=== PATIENT | male | born 1935 | race Caucasian/White ===

== ENCOUNTER 2017-10-06 10:55 | Emergency (ER) | payer MEDICARE, BC, SELFPAY ==
[2017-10-06 10:56] VITALS: BP 119/72; PULSE 67; RESP 16; TEMP 36.9; O2SAT 98; BMI 21.1
[2017-10-06 10:59] VITALS: BP 119/67; PULSE 65; RESP 16; O2SAT 97
--- NOTE | 2017-10-06 11:40 | CT_ITS ---
STUDY: CT BRAIN WITHOUT CONTRAST REASON FOR EXAM: Male, 82 years old. Expressive aphasia, headache RADIATION DOSAGE (If Supplied By Facility): CTDIvol = ( 60.81 ) mGy, DLP = ( 1135.50 ) mGycm TECHNIQUE: Transaxial CT imaging of the brain was performed without administration of intravenous contrast material. Sagittal and coronal reconstructed images are provided and reviewed. Individualized dose optimization techniques were used for this CT. COMPARISON: CT 08/04/2017, MRI 08/05/2017 FINDINGS: Vascular calcifications are seen. Normal calvarium. There is mild cerebral atrophy with widening of the extra-axial spaces and ventricular dilatation. There are areas of decreased attenuation within the white matter tracts of the supratentorial brain, consistent with microvascular disease changes. There are small punctate calcifications of the basal ganglia which are seen in the aging brain as a normal variant. Normal brainstem. There is mild cerebellar atrophy. There is no intracranial hemorrhage. There are no findings of an acute ischemic infarction. There is mucoperiosteal inflammatory disease of the paranasal sinuses consistent with mild chronic sinusitis. CT/Brain/Head without Contrast IMPRESSION: Chronic involutional changes. No acute intracranial abnormality. No significant change from 08/04/2017. Electronically Signed: Tanner Carter DO at 12:12 EDT Tel , Service support ,
[2017-10-06 11:41] LABS: Absolute Lymphocyte Count 0.96 X10^3/ul (0.83-4.51); Absolute Neutrophil Count 3.6 X10^3/uL (2.0-7.7); Basophil# 0.05 X10^3/uL; Basophil% 0.9 % (0-1); Eosinophils% 3.7 % (0-5); Hematocrit 38.9 % (40-54); Hemoglobin 12.9 g/dl (13.0-16.5); Lymphocyte # 0.96 X10^3/ul (4.0); Lymphocyte % 17.8 % (19-41); Mean Corp Hgb Conc 33.2 g/gl (32-36); Mean Corpuscular Hgb 31.6 pg (27.0-32.0); Mean Corpuscular Volume 95.3 fL (80-94); Mean Platelet Vol. 9.3 fl (6.2-12.0); Monocyte# 0.61 X10^3/uL; Monocyte% 11.3 % (0-10); Neutrophil # 3.57 X10^3/uL (2.7-7.7); Neutrophil % 66.3 % (47-70); POSITIVE COUNT NO; POSITIVE DIFFERENTIAL NO; POSITIVE MORPHOLOGY NO; Platelet Count 191 K/mm3 (150-450); RBC Distribution Width CV 12.4 % (11.6-14.6); RBC Distribution Width SD 42.5 fl (35.1-43.9); Red Blood Count 4.08 M/mm3 (4.6-6.2); White Blood Count 5.4 K/mm3 (4.4-11.0)
[2017-10-06 11:51] LABS: Anion Gap 5 (5-15); BUN 19 mg/dL (7-18); BUN/Creat Ratio 19.2 RATIO (10-20); Calcium,Total 8.3 mg/dL (8.5-10.1); Chloride 108 mmol/L (98-107); Creatinine, Serum 0.99 mg/dL (0.70-1.30); EST Glomerular Filtration Rate 77 mL/min (>60); Est Glom Filt Rate - Afr Amer 94 mL/min (>60); Estimated Creatinine Clearance 56.13 ml/min; Glucose 73 mg/dL (74-106); Potassium 4.7 mmol/L (3.5-5.1); Sodium Level 142 mmol/L (136-145)
[2017-10-06 11:57] VITALS: BP 113/73; PULSE 63; RESP 16; O2SAT 96
[2017-10-06 12:02] VITALS: BP 130/74; PULSE 67; RESP 16; O2SAT 97
[2017-10-06 12:55] LABS: Bacteria 0 SEEN /hpf (None Seen); Mucous, Urine 0 SEEN /hpf (<or=2+); Red Blood Cells-Urine 0 SEEN /hpf (0-5); Squamous Epithelial Cells - UA 0 SEEN /hpf (0-5); White Blood Cells 0 SEEN /hpf (0-5)
[2017-10-06 13:02] LABS: Color, Urine Yellow (Yellow); Glucose, Dipstick Normal (Normal); Ketone-Dipstick Negative (Negative); Leukocyte Esterase-Dipstick Negative /ul (Negative); Nitrite-Dipstick Negative (Negative); Occult Blood-Urine 10 /ul (Negative); Protein-Dipstick Negative (Negative); Urine Bilirubin Dipstick Negative (Negative); Urine Clarity Clear (Clear); Urine Urobilinogen Normal (Normal)
--- NOTE | 2017-10-06 13:09 | ED.VISSUMM ---
- ER Visit Summary Date of Service: 10/06/17 Chief Complaint: Expressive aphasia History of Present Illness: The patient is a [address] Villarreal and Dr. David Mondragon III. reports that approximately 9:00 this morning was confused while making the bed and came to speak with her and had an expressive aphasia when this occurred the last approximately 15 minutes. Patient denied any other neurologic symptoms at that time. No numbness, weakness, dizziness, blurred or double vision. Reports he has a headache is 510 severity is similar to prior headaches. Review of systems is negative. Physical Examination: Vitals: Stable. Afebrile. General: Well-nourished and well-developed. Head: Normocephalic atraumatic. Neck: Supple, no lymphadenopathy. No JVD. Nontender. Cardiovascular: Regular rate and rhythm. No murmurs. Respiratory: No respiratory distress. Clear to auscultation bilaterally. Abdominal: Soft, nontender, nondistended, normal bowel sounds. No guarding, rebound, or peritoneal signs. Back: Nontender. Extremities: Nontender, no edema. Skin: Normal color, no rash. Neurologic: Alert and oriented ?3. Cranial nerves II through XII are intact. Normal strength and sensation. Psych: Normal affect. Test Results: CT brain shows chronic changes and is unchanged from July. CBC is more for an H&H 12 point and 30.9, lymphocytes of 18, monocytes 11. Chem-7 more for chloride 108, BUN 19, glucose 73, calcium 8.3. Urine is normal. Emergency Department Course and Treatment: Patient's NIH scale is 0 here. He clearly is not a TPA candidate. He refused pain medications. He ate while here without any difficulty. Treatment Plan: Patient was admitted in July for similar episode and had an extensive evaluation. This was discussed with his neurologist, Dr. Villarreal, and is felt at this time that there really is no reason to keep him in the hospital for further evaluation. He is instructed to follow-up with her in November as previously scheduled. Call their office if he is having any other further problems or concerns and wants to be seen sooner. Disposition: To home in improved and stable condition. Impression: 1. Expressive aphasia, resolved. This note was generated with Virtual [employer] software. It may contain incorrect words, spelling, and punctuation that were not noted in review of the chart prior to signing ED Disposition - Plan for ED Patient: Chief Complaint: Neuro S/Sx Instructions: ED Transient Ischemic Attack Referrals: David Mondragon III, MD [Primary Care Provider] - Additional Instructions: Follow-up with Dr. Villarreal as previously scheduled. She states she would be happy to see you sooner if you are having any problems or concerns.
[2017-10-06 13:26] VITALS: BP 153/86; PULSE 55; RESP 16; O2SAT 97
[2017-10-06 13:32] VITALS: BP 150/97; PULSE 57; RESP 16; O2SAT 97
== END 2017-10-06 13:49 | disposition home or self-care (01) ==
PROVIDERS: Emergency Provider Emergency Medicine; Family Provider Family Medicine; PCP Family Medicine
DX: R47.01 Aphasia (principal); R51 Headache; R41.0 Disorientation, unspecified; Z86.73 Personal history of transient ischemic attack (TIA), and cerebral infarction without residual deficits; I25.10 Atherosclerotic heart disease of native coronary artery without angina pectoris; K21.9 Gastro-esophageal reflux disease without esophagitis; E11.9 Type 2 diabetes mellitus without complications; I10 Essential (primary) hypertension; E78.00 Pure hypercholesterolemia, unspecified; I48.91 Unspecified atrial fibrillation; G20 Parkinson's disease; Z87.19 Personal history of other diseases of the digestive system; Z85.46 Personal history of malignant neoplasm of prostate; Z79.82 Long term (current) use of aspirin; Z79.01 Long term (current) use of anticoagulants; Z79.899 Other long term (current) drug therapy
CPT/HCPCS: 70450; 80048; 81001; 85025; 99285; A4216

== ENCOUNTER 2017-10-24 01:42 | Emergency (ER) | payer MEDICARE, BC, SELFPAY ==
[2017-10-24 01:44] VITALS: BP 147/78; PULSE 74; RESP 19; TEMP 36.7; O2SAT 94; BMI 23.1
--- NOTE | 2017-10-24 02:27 | CT_ITS ---
STUDY: CT ABDOMEN AND PELVIS WITHOUT CONTRAST REASON FOR EXAM: Male, 82 years old. Lower abdominal pain. Nausea and constipation for 4 days. History of prostate cancer, cholecystectomy, and prostatectomy. RADIATION DOSAGE (If Supplied By Facility): CTDIvol = ( 6.07 ) mGy, DLP = ( 309.29 ) mGycm TECHNIQUE: Transaxial images were obtained from the dome of the diaphragm to the symphysis pubis without oral contrast, and without intravenous contrast. Sagittal and coronal images were reconstructed. Superiormost portion of the left hemidiaphragm is not included in this study. Individualized dose optimization techniques were used for this CT. COMPARISON: 02/27/2016. FINDINGS: There is eventration of the left hemidiaphragm with overlying mild atelectasis in the visualized left lung base. The visualized portions of the heart are within normal limits. There are coronary artery calcifications. There is elongation of the right lobe of the liver consistent with a Deep's lobe. The gallbladder is surgically absent. Normal spleen. Normal pancreas. Normal bilateral adrenal glands. Normal right kidney. Normal left kidney. Normal visualized stomach. Normal small intestine. There is fecal distention of the rectum, consistent with constipation and possible fecal impaction. There is less prominent feces throughout the remainder of the colon. There are colonic diverticula without evidence for acute diverticulitis. The appendix is visualized inferior to the cecum on axial images 139-142 and it appears normal.. There is diffuse atherosclerotic calcification of the abdominal aorta with elongation and tortuosity, but without a demonstrated aneurysm. Normal inferior vena cava. Normal retroperitoneum. There is moderate distention of the urinary bladder, which contains 430 mL of urine. The prostate gland is surgically absent. The urinary bladder is displaced anteriorly and superiorly by the fecally distended rectum. Normal abdominal wall. There are diffuse degenerative changes of the visualized lumbar spine. CT/Abdomen/Pelvis without Cont IMPRESSION: Constipation. There is very prominent fecal distention of the rectum which may represent fecal impaction. Distended urinary bladder containing 430 mL of urine. This may be incidental or may represent urinary retention. Urinary retention might result from bladder base compression by the distended rectum. Colonic diverticulosis, without evidence for acute diverticulitis. Atherosclerosis. Chronic elevation of left hemidiaphragm. Previous cholecystectomy and prostatectomy. Electronically Signed: Gianfranco Green MD at 4:40 EDT , Service support ,
--- NOTE | 2017-10-24 02:29 | ED.DCSUM_ITS ---
- ER Visit Summary Date of Service: 10/24/17 Chief Complaint: Constipation History of Present Illness: The patient is a 82 M here with spouse with no bowel movements for 4 days. Tried fleets enema 2 days ago. On Dulcolax along with Metamucil tabs. Small hard stools. Noted to be on tramadol as however has not taken for months. Normal bowel movements are every other day. History of Parkinson's disease. Mild difficulty urinating, history of prostate cancer with prostate removal. No fevers. History of diverticulitis, does complain of some lower abdominal pain. No other complaints. Physical Examination: General: Alert and oriented ?3, no acute distress HEENT: Normocephalic, atraumatic. Moist mucosa membranes Neck: supple, nontender. Cardiovascular: Regular rate and rhythm, no murmurs Respiratory: Normal breath sounds, symmetric, no distress Abdomen: Soft, suprapubic tenderness with mild distention. No guarding or rebound Rectal: Nonthrombosed hemorrhoids laterally, digital rectal examination noted stool impaction. Extremities: Nontender, no edema, pulses intact ?4 Neuro: no focal neurological deficits. Test Results: CT scan noted fecal impaction. There is no diverticulitis. There is distended bladder with concerns secondary to fecal impaction. Emergency Department Course and Treatment: Patient did have suprapubic distention on my initial evaluation. During rectal examination significant impaction was noted. He was disimpacted by myself in the ED, there is mild gross bleeding secondary to this. His abdominal pain was improving after impaction. He had a nonsurgical abdomen. I did obtain a CT scan for evaluation post impaction. Noted concerns for fecal impaction per radiology with because of displacement of the bladder. During the ED patient had multiple urinary events with good relief. Therefore I do not feel he is retaining at this time. I did have nursing perform a soapsuds enema, he did have moderate bowel movement. From review of imaging myself, there is moderate left-sided stool burden. Patient feels much better compared to arrival. Discuss patient and spouse for continued management treatment at home. Stool suppository was placed in the ED. They do have MiraLAX at home, discuss drinking 1 glass with 1 scoop every hour until he has continued bowel movements then decreasing to 2-3 times per day for daily bowel movements. They understand and agree with plan. Discharge home. Discussed return if any worsening symptoms. Treatment Plan: [] Disposition: Discharge Impression: 1. Constipation This note was generated with [employer] dictation software. It may contain incorrect words, spelling, and punctuation that were not noted in review of the chart prior to signing ED Disposition - Plan for ED Patient: Disposition: Home or Assisted Living Chief Complaint: Constipation Diagnosis: Constipation Instructions: ED Constipation, ED Impaction Fecal Treated Referrals: David Mondragon III, MD [Primary Care Provider] - 3-5 Days Additional Instructions: Use your MiraLAX 1 scoop in 8 ounces of water every hour until bowel movement. Then decreased back to 2-3 times daily until having daily bowel movements.
[2017-10-24] MEDS: Bisacodyl 10 MG Suppository RECTAL (06:23)
[2017-10-24 06:28] VITALS: BP 123/78; PULSE 76; RESP 16; O2SAT 96
== END 2017-10-24 06:28 | disposition home or self-care (01) ==
PROVIDERS: Emergency Provider Emergency Medicine; Family Provider Family Medicine; PCP Family Medicine
DX: K59.00 Constipation, unspecified (principal); R10.30 Lower abdominal pain, unspecified; K64.9 Unspecified hemorrhoids; G20 Parkinson's disease; Z86.73 Personal history of transient ischemic attack (TIA), and cerebral infarction without residual deficits; K21.9 Gastro-esophageal reflux disease without esophagitis; I10 Essential (primary) hypertension; E78.00 Pure hypercholesterolemia, unspecified; Z85.46 Personal history of malignant neoplasm of prostate; I48.0 Paroxysmal atrial fibrillation; Z90.79 Acquired absence of other genital organ(s); Z87.19 Personal history of other diseases of the digestive system; Z79.82 Long term (current) use of aspirin; Z79.01 Long term (current) use of anticoagulants; Z79.899 Other long term (current) drug therapy
CPT/HCPCS: 74176; 99284

== ENCOUNTER 2017-11-05 10:50 | Emergency (ER) | payer MEDICARE, BC, SELFPAY ==
[2017-11-05 10:52] VITALS: BP 149/84; PULSE 61; RESP 18; TEMP 36.4; O2SAT 95; BMI 21.8
--- NOTE | 2017-11-05 10:52 | EKG12_ITS ---
Test Reason : CP Blood Pressure : / mmHG Vent. Rate : 060 BPM Atrial Rate : 060 BPM P-R Int : 130 ms QRS Dur : 084 ms QT Int : 438 ms P-R-T Axes : 017 015 044 degrees QTc Int : 438 ms Normal sinus rhythm with sinus arrhythmia Low voltage QRS (limb leads) Confirmed by JAYY SANABRIA, TROY ([id number]), medical editor DANIEL ROBLES ([id number]) on 11/08/2017 2:23:08 PM Referred By: SUNSHINE
--- NOTE | 2017-11-05 11:27 | ED.VISSUMM ---
- ER Visit Summary Date of Service: 11/05/17 Chief Complaint: Intermittent left arm discomfort History of Present Illness: The patient is a 82 M Parkinson's disease, prostate CA for which he had a prostatectomy and CAD with cardiac stents. Patient did have a fall 1 week ago he did not think he was injured. Yesterday he started having some mild left arm discomfort as a sharp pain it is intermittent seems to be worse with certain movements. Currently is pain-free. He said this is nothing like his prior cardiac pain did not have arm pain with that. He denies any chest pain. He denies any shortness of breath. He denies any diaphoresis or nausea. He states that he was trying to carry groceries last night lifting the bags seem to make the arm discomfort worse. He has not had exertional symptoms. Physical Examination: Very well-appearing older male. Vital signs are stable and afebrile. He does not look in any distress. Currently symptom-free pain-free. He is accompanied by his . H EENT exam unremarkable. Neck nontender. Lungs clear to auscultation bilaterally. Heart regular rate and rhythm no murmur. Chest nontender. Abdomen soft nontender. He is moving all 4 extremities. They are neurovascularly intact. Calves are nontender without edema. The left arm he has normal range of motion left shoulder, elbow and wrist. Are nontender nonswollen. There is no edema. No redness. No warmth. His left hand is neurovascularly intact with a strong left radial pulse. Normal touch sensation. 5 out of 5 complaint clerk strength. I moved his arm in many different directions and had him do it also and there is really no reproducible pain. His biceps and triceps appear to be intact. There is no gross bony deformity. Back is nontender. Neurologic exam is normal. He has no focal motor deficits. He does have Parkinson's disease. Test Results: Nurses obtain an EKG on arrival due to the arm pain and cardiac history clinically I do not think this is cardiac. His his EKG reveals a sinus rhythm rate is 60 with no acute signs of VT or ischemia. A left humerus x-ray will be obtained. Left humerus x-ray showed no acute abnormality. Emergency Department Course and Treatment: Since exam and history is more consistent with left arm musculoskeletal pain. Clinically does not have a dislocation. There is no signs of infection. Treatment Plan: Back into reevaluate the patient had been moving his arm all over while he was in the ER to try to find an area of discomfort it does seem like his his proximal forearm which clinically appears to be soft tissue but he did have a fall a week ago he is older and would obtain a left forearm x-ray. Disposition: Discharge Impression: Musculoskeletal left arm pain status post recent fall History of CAD with 3 stents History of Parkinson's disease This note was generated with [employer] dictation software. It may contain incorrect words, spelling, and punctuation that were not noted in review of the chart prior to signing ED Disposition - Plan for ED Patient: Chief Complaint: Upper Extremity Injury Referrals: David Mondragon III, MD [Primary Care Provider] -
--- NOTE | 2017-11-05 11:30 | RAD_ITS ---
STUDY: X-RAY - LEFT HUMERUS REASON FOR EXAM: Male, 82 years old. Left upper arm pain. TECHNIQUE: 2 view(s) of the humerus. COMPARISON: None. FINDINGS: Normal visualized humerus. There is no demonstrated fracture or osseous destructive process. There is no demonstrated soft tissue abnormality. RAD/Humerus min 2 Views IMPRESSION: Normal x-ray examination of the humerus. Electronically Signed: Chilango Rodgers MD at 12:13 EDT Tel [phone], Service support ,
--- NOTE | 2017-11-05 11:31 | ED.DCSUM_ITS ---
- ER Visit Summary Date of Service: 11/05/17 Chief Complaint: Intermittent left arm discomfort History of Present Illness: The patient is a 82 M Parkinson's disease, prostate CA for which he had a prostatectomy and CAD with cardiac stents. Patient did have a fall 1 week ago he did not think he was injured. Yesterday he started having some mild left arm discomfort as a sharp pain it is intermittent seems to be worse with certain movements. Currently is pain-free. He said this is nothing like his prior cardiac pain did not have arm pain with that. He denies any chest pain. He denies any shortness of breath. He denies any diaphoresis or nausea. He states that he was trying to carry groceries last night lifting the bags seem to make the arm discomfort worse. He has not had exertional symptoms. Physical Examination: Very well-appearing older male. Vital signs are stable and afebrile. He does not look in any distress. Currently symptom-free pain- free. He is accompanied by his . H EENT exam unremarkable. Neck nontender. Lungs clear to auscultation bilaterally. Heart regular rate and rhythm no murmur. Chest nontender. Abdomen soft nontender. He is moving all 4 extremities. They are neurovascularly intact. Calves are nontender without edema. The left arm he has normal range of motion left shoulder, elbow and wrist. Are nontender nonswollen. There is no edema. No redness. No warmth. His left hand is neurovascularly intact with a strong left radial pulse. Normal touch sensation. 5 out of 5 cleaner laboratory equipment strength. I moved his arm in many different directions and had him do it also and there is really no reproducible pain. His biceps and triceps appear to be intact. There is no gross bony deformity. Back is nontender. Neurologic exam is normal. He has no focal motor deficits. He does have Parkinson's disease. Test Results: Nurses obtain an EKG on arrival due to the arm pain and cardiac history clinically I do not think this is cardiac. His his EKG reveals a sinus rhythm rate is 60 with no acute signs of ND or ischemia. A left humerus x-ray will be obtained. Left humerus x-ray showed no acute abnormality. Emergency Department Course and Treatment: Since exam and history is more consistent with left arm musculoskeletal pain. Clinically does not have a dislocation. There is no signs of infection. Treatment Plan: Back into reevaluate the patient had been moving his arm all over while he was in the ER to try to find an area of discomfort it does seem like his his proximal forearm which clinically appears to be soft tissue but he did have a fall a week ago he is older and would obtain a left forearm x-ray. Disposition: Discharge Impression: Musculoskeletal left arm pain status post recent fall History of CAD with 3 stents History of Parkinson's disease This note was generated with Silver[employer] dictation software. It may contain incorrect words, spelling, and punctuation that were not noted in review of the chart prior to signing ED Disposition - Plan for ED Patient: Chief Complaint: Upper Extremity Injury Referrals: David Mondragon III, MD [Primary Care Provider] -
--- NOTE | 2017-11-05 12:19 | ED.DEP ---
ED Disposition - Plan for ED Patient: Disposition: Home or Assisted Living Chief Complaint: Upper Extremity Injury Instructions: ED Contusion Upper Ext Referrals: David Mondragon III, MD [Primary Care Provider] - 1 Week if not improving Additional Instructions: Ice to left forearm. Tylenol for pain.
--- NOTE | 2017-11-05 12:20 | RAD_ITS ---
STUDY: X-RAY - LEFT RADIUS AND ULNA REASON FOR EXAM: Male, 82 years old. Pain following a fall. TECHNIQUE: 2 view(s) of the forearm. COMPARISON: None. FINDINGS: There is no demonstrated soft tissue swelling. Normal visualized radius. Normal visualized ulna. RAD/Forearm 2 Views IMPRESSION: Normal x-ray examination of the radius and ulna. Electronically Signed: Chilango Rodgers MD at 12:39 EDT Tel [phone], Service support ,
[2017-11-05 13:00] VITALS: BP 127/49; PULSE 53; RESP 22; O2SAT 98
== END 2017-11-05 13:00 | disposition home or self-care (01) ==
PROVIDERS: Emergency Provider Emergency Medicine; Family Provider Family Medicine; PCP Family Medicine
DX: M79.602 Pain in left arm (principal); W19.XXXA Unspecified fall, initial encounter; Y93.9 Activity, unspecified; Y92.9 Unspecified place or not applicable; I25.10 Atherosclerotic heart disease of native coronary artery without angina pectoris; G20 Parkinson's disease; I25.2 Old myocardial infarction; Z86.73 Personal history of transient ischemic attack (TIA), and cerebral infarction without residual deficits; Z85.46 Personal history of malignant neoplasm of prostate; Z90.79 Acquired absence of other genital organ(s); Z90.49 Acquired absence of other specified parts of digestive tract; Z95.5 Presence of coronary angioplasty implant and graft; Z79.82 Long term (current) use of aspirin; Z79.01 Long term (current) use of anticoagulants; Z79.899 Other long term (current) drug therapy
CPT/HCPCS: 73060; 73090; 93005; 99282

== ENCOUNTER 2017-11-05 14:32 | Emergency (ER) | payer MEDICARE, BC, SELFPAY ==
[2017-11-05 14:33] VITALS: BP 119/66; PULSE 72; RESP 16; TEMP 36.8; O2SAT 96; BMI 22.1
[2017-11-05 14:46] LABS: Bedside Glucose 128 mg/dL (70-110)
--- NOTE | 2017-11-05 14:53 | CT_ITS ---
STUDY: CT BRAIN WITHOUT CONTRAST REASON FOR EXAM: Male, 82 years old. Dysarthria. TIA. RADIATION DOSAGE (If Supplied By Facility): CTDIvol = ( 44.99 ) mGy, DLP = ( 846.73 ) mGycm TECHNIQUE: Transaxial CT imaging of the brain was performed without administration of intravenous contrast material. Individualized dose optimization techniques were used for this CT. COMPARISON: Comparison is made with prior study dated October 06, 2017. FINDINGS: Normal soft tissue structures. Normal calvarium. There is mild cerebral atrophy with widening of the extra-axial spaces and ventricular dilatation. There are areas of decreased attenuation within the white matter tracts of the supratentorial brain, consistent with microvascular disease changes. There are small punctate calcifications of the basal ganglia which are seen in the aging brain as a normal variant. Normal brainstem. Normal cerebellum. There is no intracranial hemorrhage. There are no findings of an acute ischemic infarction. Atherosclerotic calcification of the vertebral arteries and cavernous portions of the internal carotid arteries bilaterally. Normal visualized paranasal sinuses. CT/Brain/Head without Contrast IMPRESSION: Chronic involutional changes of the brain. Electronically Signed: Chilango Rodgers MD at 15:45 EDT Tel [phone], Service support ,
--- NOTE | 2017-11-05 14:54 | EKG12_ITS ---
Test Reason : NEURO S/SX Blood Pressure : / mmHG Vent. Rate : 061 BPM Atrial Rate : 061 BPM P-R Int : 154 ms QRS Dur : 080 ms QT Int : 452 ms P-R-T Axes : 045 012 056 degrees QTc Int : 455 ms Normal sinus rhythm Normal ECG Confirmed by JAYY SANABRIA, TROY ([id number]), newspaper photo editor DANIEL ROBLES ([id number]) on 11/08/2017 2:24:07 PM Referred By: Orlando Mock Confirmed By:TROY HOPE MD
--- NOTE | 2017-11-05 14:59 | ED.VISSUMM ---
- ER Visit Summary Date of Service: 11/05/17 Chief Complaint: Dysarthria History of Present Illness: The patient is a 82 M SEC in the emergency department earlier today for in the left arm contusion. Patient is on Xarelto and daily aspirin for history of prior TIAs, CAD, VT and Parkinson's disease. He and his left the emergency department they had lunch at [employer] on the way home from there he started developing dysarthria. His last episode was about 4 weeks ago. He has had recent carotid studies. Reportedly he is not a surgical candidate. He is maximized therapy on his anticoagulation. His speech symptoms lasted less than 10 minutes. Like prior episodes. He had no numbness or weakness to his extremities. Currently his symptoms have totally resolved. Physical Examination: Older male accompanied by his . Vital signs are stable afebrile. No distress. HEENT exam pupils round reactive light. No facial droop. Currently normal speech. Not slurred. Easily understood. No dysarthria. Neck nontender. Lungs clear to auscultation. Heart regular rhythm no murmur. Abdomen soft nontender. He is moving all 4 extremities. They are neurovascularly intact. He has equal symmetrical group supervisor yard strength equal symmetrical dorsi plantar flexion. Neurologically is awake and alert currently has no focal neurological deficits. His NIH score is 0. Test Results: [] Emergency Department Course and Treatment: Patient's history and exam are consistent with a recent TIA that is resolved. Treatment Plan: [] Disposition: Discharge Impression: Dysarthria secondary to TIA resolved History of TIAs. History of CAD Anticoagulated on Xarelto This note was generated with [employer] dictation software. It may contain incorrect words, spelling, and punctuation that were not noted in review of the chart prior to signing ED Disposition - Plan for ED Patient: Chief Complaint: Neuro S/Sx Referrals: David Mondragon III, MD [Primary Care Provider] -
--- NOTE | 2017-11-05 15:02 | ED.DCSUM_ITS ---
- ER Visit Summary Date of Service: 11/05/17 Chief Complaint: Dysarthria History of Present Illness: The patient is a 82 M SEC in the emergency department earlier today for in the left arm contusion. Patient is on Xarelto and daily aspirin for history of prior TIAs, CAD, GA and Parkinson's disease. He and his left the emergency department they had lunch at [employer] on the way home from there he started developing dysarthria. His last episode was about 4 weeks ago. He has had recent carotid studies. Reportedly he is not a surgical candidate. He is maximized therapy on his anticoagulation. His speech symptoms lasted less than 10 minutes. Like prior episodes. He had no numbness or weakness to his extremities. Currently his symptoms have totally resolved. Physical Examination: Older male accompanied by his . Vital signs are stable afebrile. No distress. HEENT exam pupils round reactive light. No facial droop. Currently normal speech. Not slurred. Easily understood. No dysarthria. Neck nontender. Lungs clear to auscultation. Heart regular rhythm no murmur. Abdomen soft nontender. He is moving all 4 extremities. They are neurovascularly intact. He has equal symmetrical enterprise account executive strength equal symmetrical dorsi plantar flexion. Neurologically is awake and alert currently has no focal neurological deficits. His NIH score is 0. Test Results: [] Emergency Department Course and Treatment: Patient's history and exam are consistent with a recent TIA that is resolved. Treatment Plan: [] Disposition: Discharge Impression: Dysarthria secondary to TIA resolved History of TIAs. History of CAD Anticoagulated on Xarelto This note was generated with [employer] dictation software. It may contain incorrect words, spelling, and punctuation that were not noted in review of the chart prior to signing ED Disposition - Plan for ED Patient: Chief Complaint: Neuro S/Sx Referrals: David Mondragon III, MD [Primary Care Provider] -
[2017-11-05 15:25] LABS: Anion Gap 5 (5-15); BUN 15 mg/dL (7-18); BUN/Creat Ratio 13.8 RATIO (10-20); Calcium,Total 8.5 mg/dL (8.5-10.1); Chloride 106 mmol/L (98-107); Creatinine, Serum 1.09 mg/dL (0.70-1.30); EST Glomerular Filtration Rate 69 mL/min (>60); Est Glom Filt Rate - Afr Amer 84 mL/min (>60); Estimated Creatinine Clearance 53.52 ml/min; Glucose 123 mg/dL (74-106); Potassium 4.1 mmol/L (3.5-5.1); Sodium Level 139 mmol/L (136-145)
[2017-11-05 15:35] LABS: Hematocrit 41.5 % (40-54); Hemoglobin 13.9 g/dl (13.0-16.5); Mean Corp Hgb Conc 33.5 g/gl (32-36); Mean Corpuscular Hgb 31.8 pg (27.0-32.0); Mean Platelet Vol. 9.6 fl (6.2-12.0); Platelet Count 260 K/mm3 (150-450); RBC Distribution Width CV 12.5 % (11.6-14.6); RBC Distribution Width SD 42.3 fl (35.1-43.9); Red Blood Count 4.37 M/mm3 (4.6-6.2); White Blood Count 6.7 K/mm3 (4.4-11.0)
[2017-11-05 15:50] LABS: Scan Indicated on CBC? Y/N NO
[2017-11-05 16:17] VITALS: BP 105/66; PULSE 62; RESP 18; O2SAT 96
[2017-11-05 17:25] VITALS: BP 116/68; PULSE 62; RESP 18; O2SAT 97
== END 2017-11-05 17:26 | disposition home or self-care (01) ==
LOC: ED 15:13
PROVIDERS: Emergency Provider Emergency Medicine; Family Provider Family Medicine; PCP Family Medicine
DX: R47.1 Dysarthria and anarthria (principal); Z86.73 Personal history of transient ischemic attack (TIA), and cerebral infarction without residual deficits; I25.10 Atherosclerotic heart disease of native coronary artery without angina pectoris; I25.2 Old myocardial infarction; G20 Parkinson's disease; Z90.49 Acquired absence of other specified parts of digestive tract; Z79.01 Long term (current) use of anticoagulants; Z79.82 Long term (current) use of aspirin; Z79.899 Other long term (current) drug therapy; M79.602 Pain in left arm; W19.XXXA Unspecified fall, initial encounter; Y93.9 Activity, unspecified; Y92.9 Unspecified place or not applicable; Z85.46 Personal history of malignant neoplasm of prostate; Z90.79 Acquired absence of other genital organ(s); Z95.5 Presence of coronary angioplasty implant and graft
CPT/HCPCS: 70450; 73060; 73090; 80048; 82962; 85027; 93005; 99282; 99283; A4216

== ENCOUNTER 2018-07-27 22:25 | Emergency (ER) | payer MEDICARE, BC, SELFPAY ==
[2018-07-27 22:28] VITALS: BP 116/73; PULSE 60; RESP 18; TEMP 36.6; O2SAT 98; BMI 20.7
--- NOTE | 2018-07-27 22:55 | CT_ITS ---
STUDY: CT BRAIN WITHOUT CONTRAST REASON FOR EXAM: Male, 82 years old. Confusion, agitation, history of atrial fibrillation, hypertension, TIA, dementia, Parkinson's, prostate cancer RADIATION DOSAGE (If Supplied By Facility): CTDIvol = ( 44.99 ) mGy, DLP = ( 846.73 ) mGycm TECHNIQUE: Transaxial CT imaging of the brain was performed without administration of intravenous contrast material. Multiplanar coronal and sagittal images were reformatted. Individualized dose optimization techniques were used for this CT. COMPARISON: CT brain noncontrast 11/05/2017. 10/06/2017. 08/04/2017. FINDINGS: Normal soft tissue structures. Normal calvarium. There is moderate cerebral atrophy with widening of the extra-axial spaces and ventricular dilatation. There are areas of decreased attenuation within the white matter tracts of the supratentorial brain, consistent with microvascular disease changes. There are small punctate calcifications of the basal ganglia which are seen in the aging brain as a normal variant. Normal brainstem. There is moderate cerebellar atrophy. There is no intracranial hemorrhage. There are no findings of an acute ischemic infarction. Normal visualized paranasal sinuses. The bilateral mastoid air cells are clear. Intracranial arteriosclerosis of the carotid and vertebral arteries. Marked stable productive changes first right mass and C1-[address]/Brain/Head without Contrast IMPRESSION: Chronic involutional changes of the brain. There is no acute intracranial pathology. There is no significant interval change. Electronically Signed: Keerthi Snyder MD at 23:49 EST , Service support ,
--- NOTE | 2018-07-27 22:55 | RAD_ITS ---
STUDY: X-RAY CHEST REASON FOR EXAM: Male, 82 years old. Parkinson's dementia TECHNIQUE: PA and lateral COMPARISON: August 04, 2017 FINDINGS: There is marked elevation of left hemidiaphragm due to nonspecific bowel distention.. There is minor atelectasis in the left lower lobe. Right lung is clear. No pleural effusion or pneumothorax Cardiac size is difficult to evaluate due to the suboptimal visualization. Normal mediastinum and esdras. Normal visualized pulmonary arteries. Normal visualized aortic arch and descending thoracic aorta. Dorsal spine demonstrates degenerative change Normal visualized ribs, clavicles, and shoulders. There is no demonstrated abnormality of the visualized soft tissue structures of the upper abdomen. RAD/Chest PA and Lateral IMPRESSION: Minor left basilar atelectasis in association with marked elevation of left hemidiaphragm Electronically Signed: Orlando Barillas MD at 23:45 EST , Service support ,
--- NOTE | 2018-07-27 22:55 | EKG12_ITS ---
Test Reason : CONFUSION Blood Pressure : / mmHG Vent. Rate : 060 BPM Atrial Rate : 060 BPM P-R Int : 146 ms QRS Dur : 088 ms QT Int : 462 ms P-R-T Axes : 039 007 034 degrees QTc Int : 462 ms Normal sinus rhythm with sinus arrhythmia Nonspecific ST abnormality Abnormal ECG Confirmed by SALIMA SANABRIA, EMERSON ([id number]), newspaper copy editor DANIEL ROBLES ([id number]) on 08/02/2018 4:51:00 PM Referred By: MARIAN Confirmed By:EMERSON BORREGO MD
--- NOTE | 2018-07-27 22:56 | ED.VISSUMM ---
- ER Visit Summary Date of Service: 07/27/18 Chief Complaint: Confusion History of Present Illness: The patient is a 82 M who presents with and daughter for increased confusion. Patient has a history of Parkinson's disorder and Alzheimer's disease which has been progressively worsening at a rapid rate over the last few weeks. Today patient was accusing his and daughter being impostors and was having visual hallucinations. Daughter was concerned the patient was going to strike the . felt threatened physically by her 's behavior and does not feel safe with him at home. he has not had any recent illnesses, no fever, urinary symptoms, cough or any other issues. He saw his neurologist this morning and was ordered a CT head that had not been performed yet. He is on Xarelto for atrial fibrillation. History of coronary artery disease and stents. Family is very concerned for the patient's deteriorating condition and their ability to safely take care of him. Patient recently had Exilon patches on to see if it would help with his symptoms, but there was no improvement. No other medication changes. Physical Examination: Vital signs: afebrile, hemodynamically stable, no hypoxia on room air General: well nourished, well developed, in no distress Skin: warm, dry, no rash, no pallor, linear abrasion to the right sikhism, large healing contusion to the left distal upper arm, no deformities HEENT: normocephalic and atraumatic; PERRL, EOMI, moist mucous membranes Cardiovascular: regular rate and rhythm without murmurs, no peripheral edema, 2+ pulses all distal extremities Respiratory: No increased work of breathing, lungs are clear to auscultation bilaterally but diminished in the left lower field Abdominal: Abdomen is soft, nontender with normoactive bowel sounds, no guarding or rebound, no masses MSK: Moves all extremities, no deformities, normal strength, normal gait Neuro: Awake and alert, oriented ?4. Answers most questions appropriately, identify his but because his daughter his granddaughter. Identifies family no facial droop, sensation and motor function intact and symmetric Test Results: Abnormal Lab Results 07/27/18 07/27/18 07/27/18 23:07 23:07 23:15 WBC 6.1 RBC 4.00 L Hgb 12.5 L Hct 38.5 L MCV 96.3 H MCH 31.3 MCHC 32.5 RDW 12.8 RDW Differential 45.0 H Plt Count 186 MPV 9.6 Immature Gran % (Auto) 0.200 Neut % (Auto) 71.1 H Lymph % (Auto) 17.8 L [place] % (Auto) 8.1 Eos % (Auto) 2.1 Baso % (Auto) 0.7 Absolute Neuts (auto) 4.3 Absolute Lymphs (auto) 1.08 Total Counted Not Reportable PT INR APTT Sodium Potassium Chloride Carbon Dioxide Anion Gap BUN Creatinine Estim Creat Clear Calc Est GFR (MDRD) Af Amer Est GFR (MDRD) Non-Af BUN/Creatinine Ratio Glucose Calcium Total Bilirubin AST ALT Alkaline Phosphatase Troponin I Total Protein Albumin Globulin Albumin/Globulin Ratio Urine Color Yellow Urine Clarity Clear Urine pH 6.0 Ur Specific [place] 1.010 Urine Protein Negative Urine Glucose (UA) Normal Urine Ketones Negative Urine Occult Blood Negative Urine Nitrite Negative Urine Bilirubin Negative Urine Urobilinogen Normal Ur Leukocyte Esterase Negative Urine RBC 0 SEEN Urine WBC 0 SEEN Ur Squamous Epith Cells 0 SEEN Urine Bacteria 0 SEEN Urine Mucus 0 SEEN Urine Opiates Screen NEGATIVE Urine Methadone Screen NEGATIVE Ur Barbiturates Screen NEGATIVE Ur Phencyclidine Scrn NEGATIVE Ur Amphetamines Screen NEGATIVE U Methamphetamin-MDMA NEGATIVE U Benzodiazepines Scrn NEGATIVE Urine Cocaine Screen NEGATIVE U Cannabinoids Screen NEGATIVE Ur Drug Screen Comment Ethyl Alcohol 07/27/18 07/27/18 07/27/18 23:15 23:15 23:15 WBC RBC Hgb Hct MCV MCH MCHC RDW RDW Differential Plt Count MPV Immature Gran % (Auto) Neut % (Auto) Lymph % (Auto) [place] % (Auto) Eos % (Auto) Baso % (Auto) Absolute Neuts (auto) Absolute Lymphs (auto) Total Counted PT 26.7 H INR 2.5 APTT 37.2 H Sodium 139 Potassium 4.4 Chloride 106 Carbon Dioxide 26.0 Anion Gap 7 BUN 22 H Creatinine 1.08 Estim Creat Clear Calc 50.54 Est GFR (MDRD) Af Amer 84 Est GFR (MDRD) Non-Af 70 BUN/Creatinine Ratio 20.4 H Glucose 92 Calcium 8.3 L Total Bilirubin 0.40 AST 16 ALT 9 L Alkaline Phosphatase 57 Troponin I < 0.015 Total Protein 6.7 Albumin 3.6 Globulin 3.1 Albumin/Globulin Ratio 1.2 Urine Color Urine Clarity Urine pH Ur Specific [place] Urine Protein Urine Glucose (UA) Urine Ketones Urine Occult Blood Urine Nitrite Urine Bilirubin Urine Urobilinogen Ur Leukocyte Esterase Urine RBC Urine WBC Ur Squamous Epith Cells Urine Bacteria Urine Mucus Urine Opiates Screen Urine Methadone Screen Ur Barbiturates Screen Ur Phencyclidine Scrn Ur Amphetamines Screen U Methamphetamin-MDMA U Benzodiazepines Scrn Urine Cocaine Screen U Cannabinoids Screen Ur Drug Screen Comment Ethyl Alcohol < 3.0 Clinical Impression(s) from Imaging Studies Brain CT 07/27/18 22:55 IMPRESSION: Chronic involutional changes of the brain. There is no acute intracranial pathology. There is no significant interval change. Electronically Signed: Keerthi Snyder MD at 23:49 EST , Service support , Chest X-Ray 07/27/18 22:55 IMPRESSION: Minor left basilar atelectasis in association with marked elevation of left hemidiaphragm Electronically Signed: Orlando Barillas MD at 23:45 EST , Service support , Medications Given Amlodipine Besylate (Norvasc) 5 mg PO DAILY [facility] Carbidopa/Levodopa (Sinemet) 2 tablet PO TIDAC [facility] Dofetilide (Tikosyn) 500 mcg PO Q12 [facility] Gabapentin (Neurontin) 200 mg PO TIDCM [facility] Lamotrigine (Lamictal Chew) 25 mg PO DAILY [facility] Pravastatin Sodium (Pravachol) 80 mg PO DAILY@2200 [facility] Rivaroxaban (Xarelto) 20 mg PO DAILY [facility] Sertraline HCl (Zoloft) 25 mg PO DAILY [facility] Discontinued Medications Aspirin (Ecotrin) 81 mg PO DAILY [facility] Gabapentin (Neurontin) 200 mg PO TIDCM [facility] Sodium Chloride () 500 mls @ 1,000 mls/hr IV .Q30M [facility] Stop: 07/27/18 23:29 Last Admin: 07/27/18 23:20 Dose: 1,000 mls/hr Lamotrigine (Lamictal) 25 mg PO DAILY [facility] Pravastatin Sodium (Pravachol) 80 mg PO DAILY [facility] Emergency Department Course and Treatment: Patient presents for evaluation of rapid worsening of confusion, now with visual hallucinations and paranoia, accusing family being impostors and not recognizing his and daughter at home. Patient is on Xarelto and has evidence of recent injuries that were not witnessed by the family. Thus head CT performed to look for any intracranial process. Patient has full range of motion and no deformities or tenderness to the left upper extremity at the site of a well-healing yellowing bruise, thus no imaging was performed of the arm. Patient had his Klonopin prior to coming to the emergency department and is calm at this time. Head CT showed no intracranial hemorrhage. Chest x-ray showed chronic left hemidiaphragm elevation, consistent with patient's diminished breath sounds in the left lower field. No pneumonia or other acute process noted. EKG showed sinus rhythm with no ischemic changes. Patient had no significant leukocytosis, anemia, electrolyte or hepatic derangements, and urine was negative for infection. Troponin negative. Tox screen and alcohol were negative. Patient received IV fluids for hydration. On reevaluation he was sleeping comfortably. I discussed with the mother and daughter that patient had no medical findings that would require admission for further workup or management. The does not feel comfortable taking the patient home due to his increased confusion, agitation and feeling like her safety is threatened. We discussed a geropsychiatric evaluation so that patient can receive stabilization of his acute symptoms and then hopefully placement into a nursing care facility. Daughter and were amenable to this plan. Crisis intervention was consulted, and upon initially speaking with the and daughter, they did not know that the patient was not being placed directly into a shelter facility. I spoke with them again that he would require stabilization of his aggressive and paranoid behavior prior to being able to be placed into a facility. If he exhibited this behavior and threatening staff or other residents, he would still be sent for gerosychiatric evaluation. They then agreed with geropsych eval, with the end goal being placement into a memory care or other skilled care facility once patient's paranoia, hallucinations, and threatening behavior has been resolved. Patient is on Ticosyn for a-fib, which brought with her. Patient was ordered his morning medications and will be given his home Ticosyn. Final disposition is pending placement by Crisis counselor. Treatment Plan: [] Disposition: [] Impression: visual hallucinations, paranoia, parkinson's dementia, aggressive behavior This note was generated with [employer] dictation software. It may contain incorrect words, spelling, and punctuation that were not noted in review of the chart prior to signing ED Disposition - Plan for ED Patient: Chief Complaint: Confusion Referrals: David Mondragon III, MD [Primary Care Provider] -
--- NOTE | 2018-07-27 23:00 | ED.DCSUM_ITS ---
- ER Visit Summary Date of Service: 07/27/18 Chief Complaint: Confusion History of Present Illness: The patient is a 82 M who presents with and daughter for increased confusion. Patient has a history of Parkinson's disorder and Alzheimer's disease which has been progressively worsening at a rapid rate over the last few weeks. Today patient was accusing his and daughter being impostors and was having visual hallucinations. Daughter was concerned the patient was going to strike the . felt threatened physically by her 's behavior and does not feel safe with him at home. he has not had any recent illnesses, no fever, urinary symptoms, cough or any other issues. He saw his neurologist this morning and was ordered a CT head that had not been performed yet. He is on Xarelto for atrial fibrillation. History of coronary artery disease and stents. Family is very concerned for the patient's deteriorating condition and their ability to safely take care of him. Patient recently had Exilon patches on to see if it would help with his symptoms, but there was no improvement. No other medication changes. Physical Examination: Vital signs: afebrile, hemodynamically stable, no hypoxia on room air General: well nourished, well developed, in no distress Skin: warm, dry, no rash, no pallor, linear abrasion to the right islam, large healing contusion to the left distal upper arm, no deformities HEENT: normocephalic and atraumatic; PERRL, EOMI, moist mucous membranes Cardiovascular: regular rate and rhythm without murmurs, no peripheral edema, 2+ pulses all distal extremities Respiratory: No increased work of breathing, lungs are clear to auscultation bilaterally but diminished in the left lower field Abdominal: Abdomen is soft, nontender with normoactive bowel sounds, no guarding or rebound, no masses MSK: Moves all extremities, no deformities, normal strength, normal gait Neuro: Awake and alert, oriented ?4. Answers most questions appropriately, identify his but because his daughter his granddaughter. Identifies family no facial droop, sensation and motor function intact and symmetric Test Results: Abnormal Lab Results 07/27/18 07/27/18 07/27/18 23:07 23:07 23:15 WBC 6.1 RBC 4.00 L Hgb 12.5 L Hct 38.5 L MCV 96.3 H MCH 31.3 MCHC 32.5 RDW 12.8 RDW Differential 45.0 H Plt Count 186 MPV 9.6 Immature Gran % (Auto) 0.200 Neut % (Auto) 71.1 H Lymph % (Auto) 17.8 L [place] % (Auto) 8.1 Eos % (Auto) 2.1 Baso % (Auto) 0.7 Absolute Neuts (auto) 4.3 Absolute Lymphs (auto) 1.08 Total Counted Not Reportable PT INR APTT Sodium Potassium Chloride Carbon Dioxide Anion Gap BUN Creatinine Estim Creat Clear Calc Est GFR (MDRD) Af Amer Est GFR (MDRD) Non-Af BUN/Creatinine Ratio Glucose Calcium Total Bilirubin AST ALT Alkaline Phosphatase Troponin I Total Protein Albumin Globulin Albumin/Globulin Ratio Urine Color Yellow Urine Clarity Clear Urine pH 6.0 Ur Specific [place] 1.010 Urine Protein Negative Urine Glucose (UA) Normal Urine Ketones Negative Urine Occult Blood Negative Urine Nitrite Negative Urine Bilirubin Negative Urine Urobilinogen Normal Ur Leukocyte Esterase Negative Urine RBC 0 SEEN Urine WBC 0 SEEN Ur Squamous Epith Cells 0 SEEN Urine Bacteria 0 SEEN Urine Mucus 0 SEEN Urine Opiates Screen NEGATIVE Urine Methadone Screen NEGATIVE Ur Barbiturates Screen NEGATIVE Ur Phencyclidine Scrn NEGATIVE Ur Amphetamines Screen NEGATIVE U Methamphetamin-MDMA NEGATIVE U Benzodiazepines Scrn NEGATIVE Urine Cocaine Screen NEGATIVE U Cannabinoids Screen NEGATIVE Ur Drug Screen Comment Ethyl Alcohol 07/27/18 07/27/18 07/27/18 23:15 23:15 23:15 WBC RBC Hgb Hct MCV MCH MCHC RDW RDW Differential Plt Count MPV Immature Gran % (Auto) Neut % (Auto) Lymph % (Auto) [place] % (Auto) Eos % (Auto) Baso % (Auto) Absolute Neuts (auto) Absolute Lymphs (auto) Total Counted PT 26.7 H INR 2.5 APTT 37.2 H Sodium 139 Potassium 4.4 Chloride 106 Carbon Dioxide 26.0 Anion Gap 7 BUN 22 H Creatinine 1.08 Estim Creat Clear Calc 50.54 Est GFR (MDRD) Af Amer 84 Est GFR (MDRD) Non-Af 70 BUN/Creatinine Ratio 20.4 H Glucose 92 Calcium 8.3 L Total Bilirubin 0.40 AST 16 ALT 9 L Alkaline Phosphatase 57 Troponin I < 0.015 Total Protein 6.7 Albumin 3.6 Globulin 3.1 Albumin/Globulin Ratio 1.2 Urine Color Urine Clarity Urine pH Ur Specific [place] Urine Protein Urine Glucose (UA) Urine Ketones Urine Occult Blood Urine Nitrite Urine Bilirubin Urine Urobilinogen Ur Leukocyte Esterase Urine RBC Urine WBC Ur Squamous Epith Cells Urine Bacteria Urine Mucus Urine Opiates Screen Urine Methadone Screen Ur Barbiturates Screen Ur Phencyclidine Scrn Ur Amphetamines Screen U Methamphetamin-MDMA U Benzodiazepines Scrn Urine Cocaine Screen U Cannabinoids Screen Ur Drug Screen Comment Ethyl Alcohol < 3.0 Clinical Impression(s) from Imaging Studies Brain CT 07/27/18 22:55 IMPRESSION: Chronic involutional changes of the brain. There is no acute intracranial pathology. There is no significant interval change. Electronically Signed: Keerthi Snyder MD at 23:49 EST , Service support , Chest X-Ray 07/27/18 22:55 IMPRESSION: Minor left basilar atelectasis in association with marked elevation of left hemidiaphragm Electronically Signed: Orlando Barillas MD at 23:45 EST , Service support , Medications Given Amlodipine Besylate (Norvasc) 5 mg PO DAILY [facility] Carbidopa/Levodopa (Sinemet) 2 tablet PO TIDAC [facility] Dofetilide (Tikosyn) 500 mcg PO Q12 [facility] Gabapentin (Neurontin) 200 mg PO TIDCM [facility] Lamotrigine (Lamictal Chew) 25 mg PO DAILY [facility] Pravastatin Sodium (Pravachol) 80 mg PO DAILY@2200 [facility] Rivaroxaban (Xarelto) 20 mg PO DAILY [facility] Sertraline HCl (Zoloft) 25 mg PO DAILY [facility] Discontinued Medications Aspirin (Ecotrin) 81 mg PO DAILY [facility] Gabapentin (Neurontin) 200 mg PO TIDCM [facility] Sodium Chloride () 500 mls @ 1,000 mls/hr IV .Q30M [facility] Stop: 07/27/18 23:29 Last Admin: 07/27/18 23:20 Dose: 1,000 mls/hr Lamotrigine (Lamictal) 25 mg PO DAILY [facility] Pravastatin Sodium (Pravachol) 80 mg PO DAILY [facility] Emergency Department Course and Treatment: Patient presents for evaluation of rapid worsening of confusion, now with visual hallucinations and paranoia, accusing family being impostors and not recognizing his and daughter at home. Patient is on Xarelto and has evidence of recent injuries that were not witnessed by the family. Thus head CT performed to look for any intracranial process. Patient has full range of motion and no deformities or tenderness to the left upper extremity at the site of a well-healing yellowing bruise, thus no imaging was performed of the arm. Patient had his Klonopin prior to coming to the emergency department and is calm at this time. Head CT showed no intracranial hemorrhage. Chest x-ray showed chronic left hemidiaphragm elevation, consistent with patient's diminished breath sounds in the left lower field. No pneumonia or other acute process noted. EKG showed sinus rhythm with no ischemic changes. Patient had no significant leukocytosis, anemia, electrolyte or hepatic derangements, and urine was negative for infection. Troponin negative. Tox screen and alcohol were negative. Patient received IV fluids for hydration. On reevaluation he was sleeping comfortably. I discussed with the mother and daughter that patient had no medical findings that would require admission for further workup or management. The does not feel comfortable taking the patient home due to his increased confusion, agitation and feeling like her safety is threatened. We discussed a geropsychiatric evaluation so that patient can receive stabilization of his acute symptoms and then hopefully placement into a nursing care facility. Daughter and were amenable to this plan. Crisis intervention was consulted, and upon initially speaking with the and daughter, they did not know that the patient was not being placed directly into a group home facility. I spoke with them again that he would require stabilization of his aggressive and paranoid behavior prior to being able to be placed into a facility. If he exhibited this behavior and threatening staff or other residents, he would still be sent for gerosychiatric evaluation. They then agreed with geropsych eval, with the end goal being placement into a memory care or other skilled care facility once patient's paranoia, hallucinations, and threatening behavior has been resolved. Patient is on Ticosyn for a-fib, which brought with her. Patient was ordered his morning medications and will be given his home Ticosyn. Final disposition is pending placement by Crisis counselor. Treatment Plan: [] Disposition: [] Impression: visual hallucinations, paranoia, parkinson's dementia, aggressive behavior This note was generated with [employer] dictation software. It may contain incorrect words, spelling, and punctuation that were not noted in review of the chart prior to signing ED Disposition - Plan for ED Patient: Chief Complaint: Confusion Referrals: David Mondragon III, MD [Primary Care Provider] -
[2018-07-27 23:14] LABS: Bacteria 0 SEEN /hpf (None Seen); Mucous, Urine 0 SEEN /hpf (<or=2+); Red Blood Cells-Urine 0 SEEN /hpf (0-5); Squamous Epithelial Cells - UA 0 SEEN /hpf (0-5); White Blood Cells 0 SEEN /hpf (0-5)
[2018-07-27 23:18] LABS: Color, Urine Yellow (Yellow); Glucose, Dipstick Normal (Normal); Ketone-Dipstick Negative (Negative); Leukocyte Esterase-Dipstick Negative /ul (Negative); Nitrite-Dipstick Negative (Negative); Occult Blood-Urine Negative /ul (Negative); Protein-Dipstick Negative (Negative); Urine Bilirubin Dipstick Negative (Negative); Urine Clarity Clear (Clear); Urine Urobilinogen Normal (Normal)
[2018-07-27 23:29] LABS: Amphetamine Urine VISTA NEGATIVE (<1000 ng/mL); Barbiturate Urine VISTA NEGATIVE (< 200 ng/mL); Benzodiazepine Urine VISTA NEGATIVE (< 200 ng/mL); Cocaine Urine VISTA NEGATIVE (< 300 ng/mL); Ecstacy Urine VISTA NEGATIVE (< 500 ng/mL); Methadone Urine VISTA NEGATIVE (< 300 ng/mL); PCP Urine VISTA NEGATIVE (< 25 ng/mL); THC Urine VISTA NEGATIVE (< 50 ng/mL); Vista UDS pH Range 7
[2018-07-27 23:32] LABS: Absolute Lymphocyte Count 1.08 X10^3/ul (0.83-4.51); Absolute Neutrophil Count 4.3 X10^3/uL (2.0-7.7); Basophil# 0.04 X10^3/uL; Basophil% 0.7 % (0-1); Eosinophil# 0.13 X10^3/uL; Eosinophils% 2.1 % (0-5); Hematocrit 38.5 % (40-54); Hemoglobin 12.5 g/dl (13.0-16.5); Lymphocyte # 1.08 X10^3/ul (4.0); Lymphocyte % 17.8 % (19-41); Mean Corp Hgb Conc 32.5 g/gl (32-36); Mean Corpuscular Hgb 31.3 pg (27.0-32.0); Mean Corpuscular Volume 96.3 fL (80-94); Mean Platelet Vol. 9.6 fl (6.2-12.0); Monocyte# 0.49 X10^3/uL; Monocyte% 8.1 % (0-10); Neutrophil # 4.31 X10^3/uL (2.7-7.7); Neutrophil % 71.1 % (47-70); Platelet Count 186 K/mm3 (150-450); RBC Distribution Width CV 12.8 % (11.6-14.6); White Blood Count 6.1 K/mm3 (4.4-11.0)
[2018-07-27 23:36] LABS: POSITIVE COUNT NO; POSITIVE DIFFERENTIAL NO; POSITIVE MORPHOLOGY NO
[2018-07-27 23:54] LABS: International Normalized Ratio 2.5; Prothrombin Time (Protime)PT. 26.7 SECONDS (11.7-14.9)
[2018-07-27 23:55] LABS: Partial Thromboplast Time 37.2 Seconds (24.1-36.2)
[2018-07-28 00:02] LABS: ALB/GLOB Ratio 1.2 RATIO (0.9-2.4); AST(SGOT) 16 U/L (15-37); Alanine Aminotransfer ALT/SGPT 9 U/L (16-61); Albumin, Serum 3.6 g/dL (3.2-5.0); Alkaline Phosphatase 57 U/L (45-117); Anion Gap 7 (5-15); BUN 22 mg/dL (7-18); BUN/Creat Ratio 20.4 RATIO (10-20); Calcium,Total 8.3 mg/dL (8.5-10.1); Chloride 106 mmol/L (98-107); Creatinine, Serum 1.08 mg/dL (0.70-1.30); EST Glomerular Filtration Rate 70 mL/min (>60); Est Glom Filt Rate - Afr Amer 84 mL/min (>60); Estimated Creatinine Clearance 50.54 ml/min; Globulin 3.1 g/dL (2.2-4.2); Glucose 92 mg/dL (74-106); Potassium 4.4 mmol/L (3.5-5.1); Protein, Total 6.7 g/dL (6.4-8.2); Sodium Level 139 mmol/L (136-145)
[2018-07-28 00:05] LABS: Alcohol, Blood (Medical)-Serum < 3.0 mg/dL
--- NOTE | 2018-07-28 00:44 | ED.RN ---
SELMA FROM [facility] IS HERE TO REPLACE DAVID ORTIZ. NOTIFIED SELMA THAT THIS PT NEEDS TO BE EVALUATED BY [facility].
[2018-07-28 01:09] VITALS: PULSE 52; RESP 16; O2SAT 98
[2018-07-28 02:35] VITALS: BP 134/65; PULSE 54; RESP 14; O2SAT 95
--- NOTE | 2018-07-28 03:13 | ED.RN ---
SELMA IS EVALUATING THIS PT NOW.
[2018-07-28 05:13] VITALS: BP 148/70; PULSE 53; RESP 26; O2SAT 98
--- NOTE | 2018-07-28 06:44 | NURSING ---
[facility] COMING TO SEE PATIENT
[2018-07-28] MEDS: Aspirin E.C. 81 MG Tablet PO (08:38)
[2018-07-28] MEDS: amLODIPine 5 MG Tablet PO (08:38)
[2018-07-28] MEDS: Carbidopa/Levodopa 25/100 Tablet PO (08:39)
[2018-07-28] MEDS: Dofetilide 250 MCG Capsule 500 MCG PO (08:39)
[2018-07-28] MEDS: Gabapentin 100 MG Capsule 200 MG PO (08:40)
[2018-07-28] MEDS: Sertraline 50 MG Tablet 25 MG PO (08:41)
[2018-07-28] MEDS: lamoTRIgine 25 MG Tablet PO (08:41)
[2018-07-28] MEDS: Rivaroxaban 20 MG Tablet PO (08:42)
[2018-07-28 08:59] VITALS: BP 128/67; PULSE 73; RESP 15; O2SAT 96
[2018-07-28] MEDS: Haloperidol Lactate 5 MG/ML Vial 2.5 MG IV (09:12)
[2018-07-28] MEDS: Ziprasidone IM 20 MG/ML VIAL 10 MG IM (09:42)
--- NOTE | 2018-07-28 09:43 | ED.RN ---
PT IS INCREASINGLY CONFUSED. PT IS ACCUSING FAMILY MEMBERS OF STEALING HIS NAME. IS CLAIMING IS . IS EXTREMELY AGITATED AND WANTING TO LEAVE. PT GIVEN HALDOL 2.5 MG IN LEFT DELTOID. MEDIC IS AT BEDSIDE ALONG WITH THE DAUGHTER TO ENSURE PT REMAINS IN BED.
--- NOTE | 2018-07-28 10:18 | NURSING ---
CALLED [facility]. TALKED TO [place]. THEY HAVE TRANSPORT COMING TO US ABOUT 1130. RN AWARE. FAXED DNR AND POA
[2018-07-28 10:32] VITALS: BP 135/78; PULSE 64; RESP 15; O2SAT 96
--- NOTE | 2018-07-28 10:33 | ED.RN ---
PT BECAME COMBATIVE AND WAS NOT IN THE RIGHT FRAME OF MIND TO RATIONALIZE WITH HIM. HE REMAINS CONFUSED AND DOES NOT UNDERSTAND HE IS IN THE HOSPITAL. VERY ANGRY AT FAMILY. PT WAS GIVEN GEODON 10MG IM. MEDIC AND PCS REMAIN AT THE BEDSIDE ALONG WITH FAMILY. [facility] DID CALL AND TRANSPORT IS ENROUTE. PAPERWORK WAS RECEIVED, FILLED OUT AND FAXED BACK TO THEM.
[2018-07-28 12:39] VITALS: BP 133/81; PULSE 71; RESP 16; O2SAT 96
== END 2018-07-28 12:49 | disposition home or self-care (01) ==
LOC: ED 23:10
PROVIDERS: Emergency Provider Emergency Medicine; Family Provider Family Medicine; PCP Family Medicine
DX: F22 Delusional disorders (principal); G20 Parkinson's disease; G30.9 Alzheimer's disease, unspecified; F02.81 Dementia in other diseases classified elsewhere, unspecified severity, with behavioral disturbance; S00.81XA Abrasion of other part of head, initial encounter; X58.XXXA Exposure to other specified factors, initial encounter; Y93.9 Activity, unspecified; Y92.9 Unspecified place or not applicable; I48.91 Unspecified atrial fibrillation; I25.10 Atherosclerotic heart disease of native coronary artery without angina pectoris; Z95.5 Presence of coronary angioplasty implant and graft; Z79.01 Long term (current) use of anticoagulants; Z79.82 Long term (current) use of aspirin; Z79.899 Other long term (current) drug therapy
CPT/HCPCS: 70450; 71046; 80053; 80307; 80320; 81001; 84484; 85025; 85610; 85730; 93005; 96360; 96361; 96372; 96374; 99285; J7030; J7040; G0480; J3486

== ENCOUNTER 2018-09-16 19:54 | Emergency (ER) | payer MEDICARE, BC, SELFPAY ==
[2018-09-16 19:56] VITALS: BP 106/66; PULSE 57; RESP 18; TEMP 36.7; O2SAT 97; BMI 21.2
--- NOTE | 2018-09-16 20:26 | ED.VISSUMM ---
- ER Visit Summary Date of Service: 09/16/18 Chief Complaint: Fall and head injury on Xarelto History of Present Illness: The patient is a 83 M has a history of dementia. Recently was hospitalized. Has a history of A. fib and is on a blood thinner Xarelto. Patient fell today at the retirement and hit his head. He had episodes of difficulty walking. Wednesday the retirement she is at bedside currently and states he was fine today. Eating, diarrhea or fever. No cough. No abdominal pain. Physical Examination: Elderly male no acute distress. Vital signs are stable and afebrile. Pulse ox 97% on room air no hypoxia. HEENT exam pupils are reactive light. No trauma to his face I do not see any hematomas or lacerations on top of the scalp. Nontender. C-spine nontender. Trachea midline. Lungs clear to auscultation bilaterally. Heart irregularly irregular rate about 60 consistent with A. fib. No murmur. Chest wall nontender. Abdomen soft nontender. Pelvic girdle intact. No deformity. No shortening. Tender. Patient is moving all 4 extremities. There is no deformities. His right long finger is a small wound at the base of the tip of the finger where it meets the distal nail. This does not need to be repaired. Be clean and dress. Back is nontender. No signs of bruising. Neurologically is awake alert. He answers questions. He has dementia but answers questions. Test Results: CAT scan of the brain shows no acute abnormality. Chronic changes. No fracture or intracranial bleed read by the radiologist reviewed by me. EKG sinus bradycardia rate of 53 no acute abnormality and unchanged from prior. White count of 5. Hemoglobin 12.3 which is his baseline. No bands. Electrolytes unremarkable gap of 5. BUN and creatinine 25 and 1.2. Emergency Department Course and Treatment: Patient will undergo a CAT scan of his head due to the head injury and on Xarelto. His also wanted some workup due to him possibly passing out. Repeat exam patient doing well at 22:01 PM. Test results with the patient and his family. Nurses got the patient up and he was able to ambulate. He is a shuffling gait but he blocked with eye difficulty repeat blood pressure is 130/69. Discussed with the patient's he really does not meet any criteria to be admitted and can be discharged back to the extended care facility. Treatment Plan: Follow-up with primary care physician. Head injury instructions. Disposition: Discharge Impression: Acute fall with head injury Anticoagulated on Xarelto Chronic A. fib with a history of CAD and hypertension History of dementia This note was generated with [employer] dictation software. It may contain incorrect words, spelling, and punctuation that were not noted in review of the chart prior to signing ED Disposition - Plan for ED Patient: Referrals: David Mondragon III, MD [Primary Care Provider] -
--- NOTE | 2018-09-16 20:29 | ED.DCSUM_ITS ---
- ER Visit Summary Date of Service: 09/16/18 Chief Complaint: Fall and head injury on Xarelto History of Present Illness: The patient is a 83 M has a history of dementia. Recently was hospitalized. Has a history of A. fib and is on a blood thinner Xarelto. Patient fell today at the longterm and hit his head. He had episodes of difficulty walking. Wednesday the longterm she is at bedside currently and states he was fine today. Eating, diarrhea or fever. No cough. No abdominal pain. Physical Examination: Elderly male no acute distress. Vital signs are stable and afebrile. Pulse ox 97% on room air no hypoxia. HEENT exam pupils are reactive light. No trauma to his face I do not see any hematomas or lacerations on top of the scalp. Nontender. C-spine nontender. Trachea midline. Lungs clear to auscultation bilaterally. Heart irregularly irregular rate about 60 consistent with A. fib. No murmur. Chest wall nontender. Abdomen soft nontender. Pelvic girdle intact. No deformity. No shortening. Tender. Patient is moving all 4 extremities. There is no deformities. His right long finger is a small wound at the base of the tip of the finger where it meets the distal nail. This does not need to be repaired. Be clean and dress. Back is nontender. No signs of bruising. Neurologically is awake alert. He answers questions. He has dementia but answers questions. Test Results: CAT scan of the brain shows no acute abnormality. Chronic changes. No fracture or intracranial bleed read by the radiologist reviewed by me. EKG sinus bradycardia rate of 53 no acute abnormality and unchanged from prior. White count of 5. Hemoglobin 12.3 which is his baseline. No bands. Electrolytes unremarkable gap of 5. BUN and creatinine 25 and 1.2. Emergency Department Course and Treatment: Patient will undergo a CAT scan of his head due to the head injury and on Xarelto. His also wanted some workup due to him possibly passing out. Repeat exam patient doing well at 22:01 PM. Test results with the patient and his family. Nurses got the patient up and he was able to ambulate. He is a shuffling gait but he blocked with eye difficulty repeat blood pressure is 130/69. Discussed with the patient's he really does not meet any criteria to be admitted and can be discharged back to the extended care facility. Treatment Plan: Follow-up with primary care physician. Head injury instructions. Disposition: Discharge Impression: Acute fall with head injury Anticoagulated on Xarelto Chronic A. fib with a history of CAD and hypertension History of dementia This note was generated with [employer] dictation software. It may contain incorrect words, spelling, and punctuation that were not noted in review of the chart prior to signing ED Disposition - Plan for ED Patient: Referrals: David Mondragon III, MD [Primary Care Provider] -
--- NOTE | 2018-09-16 20:29 | CT_ITS ---
HISTORY: MULTIPLE FALLS, HEAD IMJURY, ON THINNERS EXAM/TECHNIQUE: CT Head or Brain W/O Contrast: Multiplanar reformats provided. COMPARISON: 07/27/18 CT brain. FINDINGS: # of images incl. paperwork: 263 No evidence of intracranial hemorrhage, hydrocephalus mass, or acute infarct. No skull fracture. Scattered chronic appearing hypodensities in the cerebral white matter. Calcific atherosclerosis of the intracranial arteries. CT/Brain/Head without Contrast IMPRESSION: No evidence of intracranial injury or skull fracture. Individualized dose optimization techniques were used for this CT. at 2133 Reported and signed by: James Banks MD Electronically Signed: James Banks, at 21:32 EST Tel , Service support ,
--- NOTE | 2018-09-16 20:29 | EKG12_ITS ---
Test Reason : Blood Pressure : / mmHG Vent. Rate : 053 BPM Atrial Rate : 053 BPM P-R Int : 142 ms QRS Dur : 072 ms QT Int : 508 ms P-R-T Axes : 032 012 057 degrees QTc Int : 476 ms Sinus bradycardia with sinus arrhythmia Low voltage QRS Borderline ECG Confirmed by SALIMA SANABRIA, EMERSON ([id number]), commissioning editor DANIEL ROBLES ([id number]) on 09/19/2018 1:37:04 PM Referred By: JAVIER Confirmed By:EMERSON BORREGO MD
[2018-09-16 20:44] LABS: Absolute Lymphocyte Count 1.03 X10^3/ul (0.83-4.51); Absolute Neutrophil Count 3.9 X10^3/uL (2.0-7.7); Basophil# 0.02 X10^3/uL; Basophil% 0.4 % (0-1); Eosinophils% 1.8 % (0-5); Hematocrit 37.2 % (40-54); Hemoglobin 12.3 g/dl (13.0-16.5); Lymphocyte # 1.03 X10^3/ul (4.0); Lymphocyte % 18.4 % (19-41); Mean Corp Hgb Conc 33.1 g/gl (32-36); Mean Corpuscular Volume 99.7 fL (80-94); Mean Platelet Vol. 9.7 fl (6.2-12.0); Monocyte# 0.56 X10^3/uL; Neutrophil # 3.89 X10^3/uL (2.7-7.7); Neutrophil % 69.4 % (47-70); Platelet Count 173 K/mm3 (150-450); RBC Distribution Width SD 46.1 fl (35.1-43.9); Red Blood Count 3.73 M/mm3 (4.6-6.2); White Blood Count 5.6 K/mm3 (4.4-11.0)
[2018-09-16 20:45] LABS: POSITIVE COUNT NO; POSITIVE DIFFERENTIAL NO; POSITIVE MORPHOLOGY NO
[2018-09-16 21:01] LABS: Anion Gap 5 (5-15); BUN 25 mg/dL (7-18); BUN/Creat Ratio 20.7 RATIO (10-20); Calcium,Total 8.5 mg/dL (8.5-10.1); Chloride 109 mmol/L (98-107); Creatinine, Serum 1.21 mg/dL (0.70-1.30); EST Glomerular Filtration Rate 61 mL/min (>60); Est Glom Filt Rate - Afr Amer 74 mL/min (>60); Estimated Creatinine Clearance 45.44 ml/min; Glucose 125 mg/dL (74-106); Potassium 4.1 mmol/L (3.5-5.1); Sodium Level 142 mmol/L (136-145)
--- NOTE | 2018-09-16 22:03 | ED.RN ---
[facility] called and updated on patients at this time
[2018-09-16 22:23] VITALS: BP 130/69; PULSE 57; RESP 19; O2SAT 96
--- NOTE | 2018-09-16 22:41 | ED.DEP ---
ED Disposition - Plan for ED Patient: Disposition: Home or Assisted Living Instructions: ED Head Injury Closed Referrals: David Mondragon III, MD [Primary Care Provider] - 3-5 Days if not improving Additional Instructions: Patient's CAT scan labs are unremarkable. Think the patient is a substantial fall risk and this need to be carefully considered at the extended care facility. Especially since he is on a blood thinner. Intractable vomiting or not acting his baseline patient needs to be reevaluated.
[2018-09-16 22:50] VITALS: BP 130/60; PULSE 78; RESP 18; O2SAT 96
== END 2018-09-16 22:50 | disposition home or self-care (01) ==
PROVIDERS: Emergency Provider Emergency Medicine; Family Provider Family Medicine; PCP Family Medicine
DX: S09.8XXA Other specified injuries of head, initial encounter (principal); W19.XXXA Unspecified fall, initial encounter; Y93.9 Activity, unspecified; Y92.129 Unspecified place in nursing home as the place of occurrence of the external cause; I48.91 Unspecified atrial fibrillation; Z79.01 Long term (current) use of anticoagulants; I25.10 Atherosclerotic heart disease of native coronary artery without angina pectoris; I10 Essential (primary) hypertension; F03.90 Unspecified dementia, unspecified severity, without behavioral disturbance, psychotic disturbance, mood disturbance, and anxiety; K21.9 Gastro-esophageal reflux disease without esophagitis; I25.2 Old myocardial infarction; E11.9 Type 2 diabetes mellitus without complications; Z86.73 Personal history of transient ischemic attack (TIA), and cerebral infarction without residual deficits; Z85.46 Personal history of malignant neoplasm of prostate; Z79.899 Other long term (current) drug therapy; Z79.82 Long term (current) use of aspirin
CPT/HCPCS: 70450; 80048; 85025; 93005; 99285; A4216

== ENCOUNTER 2018-10-13 21:20 | Emergency (ER) | payer MEDICARE, BC, SELFPAY ==
[2018-10-13 21:21] VITALS: BP 126/72; PULSE 70; RESP 28; TEMP 37.6; O2SAT 97; BMI 23.4
[2018-10-13 21:26] VITALS: BP 126/72; PULSE 71; PULSE 72; RESP 22; RESP 27; TEMP 37.6; O2SAT 96
--- NOTE | 2018-10-13 21:41 | EKG12_ITS ---
Test Reason : ALTLOC Blood Pressure : / mmHG Vent. Rate : 068 BPM Atrial Rate : 068 BPM P-R Int : 134 ms QRS Dur : 086 ms QT Int : 432 ms P-R-T Axes : 052 006 047 degrees QTc Int : 459 ms Normal sinus rhythm with sinus arrhythmia Nonspecific T wave abnormality Abnormal ECG Confirmed by JAYY SANABRIA, TROY ([id number]), social media editor FELICIA KNOX ([id number]) on 10/17/2018 2:05:22 PM Referred By: URIEL Confirmed By:TROY HOPE MD
--- NOTE | 2018-10-13 21:41 | RAD_ITS ---
STUDY: X-RAY CHEST REASON FOR EXAM: Male, 83 years old. Cough. TECHNIQUE: Frontal and lateral views of the chest. COMPARISON: 07/27/2018. FINDINGS: Again seen is a moderately elevated left hemidiaphragm. Otherwise evidence for COPD with mild fibrosis. No focal infiltrates. No gross effusions Grossly normal size heart. Normal mediastinum and esdras. Normal visualized pulmonary arteries. There is atherosclerotic calcification of the aortic arch with tortuosity. There are diffuse degenerative changes of the visualized thoracic spine. Mild dextroconvex scoliosis. There is degenerative osteoarthritis of the bilateral shoulders. Distended loops of bowel under the left hemidiaphragm. RAD/Chest PA and Lateral IMPRESSION: No change. COPD no definite acute chest disease. Electronically Signed: Logan Jeter MD at 22:18 EDT , Service support ,
--- NOTE | 2018-10-13 21:43 | ED.VISSUMM ---
- ER Visit Summary Date of Service: 10/13/18 Chief Complaint: Cough History of Present Illness: The patient is a 83 M who presents with cough that is gradually gotten worse throughout the day today. Daughter states patient has had some upper respiratory congestion today. Daughter states patient has had some rhinorrhea. Daughter states that patient is prone to getting pneumonia whenever he gets an upper respiratory infection. half-way staff reports that the patient was having altered mental status however, the daughter states the patient is acting like his normal self. Daughter states that patient had a fever at the [facility] tonight. Physical Examination: Vital signs are stable except for tachypnea of 28. Patient is afebrile here. Patient is in no acute distress. Patient is alert and oriented to person. Cranial nerves II through XII are intact. There are no focal motor or sensory deficits noted. Oral mucosa is pink and moist. Neck is supple. Trachea is midline. There is no JVD noted. Heart was regular with frequent ectopics. Lungs showed some rhonchi in the right base. There is good respiratory effort noted. Abdomen is soft and nontender. There is no peripheral edema or calf tenderness. Test Results: EKG showed a sinus rhythm with a rate of 68. There are no acute ST or T wave changes. This was unchanged compared to previous EKG dated 09/16/2018. PA and lateral chest x-ray was obtained. There is no acute infiltrate. This was interpreted by the radiologist and reviewed by myself. CBC was normal. Basic metabolic profile shows slightly elevated BUN of 19. Urinalysis does not show any evidence of urinary tract infection. The patient is afebrile here I did not do a flu swab. Emergency Department Course and Treatment: Patient was given IV fluid bolus here. Patient felt better on reevaluation. Patient was discharged back to the extended care [facility]. Daughter understood and was agreeable with the plan. All questions were answered. Disposition: Discharge home Impression: Upper respiratory infection This note was generated with [employer] dictation software. It may contain incorrect words, spelling, and punctuation that were not noted in review of the chart prior to signing ED Disposition - Plan for ED Patient: Disposition: Fdc Facility Diagnosis: Upper respiratory infection Instructions: ED URI Viral Referrals: David Mondragon III, MD [Primary Care Provider] - 3-5 Days
--- NOTE | 2018-10-13 21:48 | ED.DCSUM_ITS ---
- ER Visit Summary Date of Service: 10/13/18 Chief Complaint: Cough History of Present Illness: The patient is a 83 M who presents with cough that is gradually gotten worse throughout the day today. Daughter states patient has had some upper respiratory congestion today. Daughter states patient has had so me rhinorrhea. Daughter states that patient is prone to getting pneumonia whenever he gets an upper respiratory infection. senior care staff reports that the patient was having altered mental status however, the daughter states the patient is acting like his normal self. Daughter states that patient had a fever at the [facility] care [facility] tonight. Physical Examination: Vital signs are stable except for tachypnea of 28. Patient is afebrile here. Patient is in no acute distress. Patient is alert and oriented to person. Cranial nerves II through XII are intact. There are no focal motor or sensory deficits noted. Oral mucosa is pink and moist. Neck is supple. Trachea is midline. There is no JVD noted. Heart was regular with frequent ectopics. Lungs showed some rhonchi in the right base. There is good respiratory effort noted. Abdomen is soft and nontender. There is no peripheral edema or calf tenderness. Test Results: EKG showed a sinus rhythm with a rate of 68. There are no acute ST or T wave changes. This was unchanged compared to previous EKG dated 09/16/2018. PA and lateral chest x-ray was obtained. There is no acute infiltrate. This was interpreted by the radiologist and reviewed by myself. CBC was normal. Basic metabolic profile shows slightly elevated BUN of 19. Urinalysis does not show any evidence of urinary tract infection. The patient is afebrile here I did not do a flu swab. Emergency Department Course and Treatment: Patient was given IV fluid bolus here . Patient felt better on reevaluation. Patient was discharged back to the extended care [facility]. Daughter understood and was agreeable with the plan. All questions were answered. Disposition: Discharge home Impression: Upper respiratory infection This note was generated with [employer] dictation software. It may contain incorrect words, spelling, and punctuation that were not noted in review of the chart prior to signing ED Disposition - Plan for ED Patient: Disposition: Long-Term Facility Diagnosis: Upper respiratory infection Instructions: ED URI Viral Referrals: David Mondragon III, MD [Primary Care Provider] - 3-5 Days
[2018-10-13 22:01] LABS: ALB/GLOB Ratio 1.2 RATIO (0.9-2.4); AST(SGOT) 14 U/L (15-37); Absolute Lymphocyte Count 0.94 X10^3/ul (0.83-4.51); Absolute Neutrophil Count 8.3 X10^3/uL (2.0-7.7); Alanine Aminotransfer ALT/SGPT 9 U/L (16-61); Albumin, Serum 3.8 g/dL (3.2-5.0); Alkaline Phosphatase 67 U/L (45-117); Anion Gap 4 (5-15); BUN 19 mg/dL (7-18); BUN/Creat Ratio 17.9 RATIO (10-20); Basophil# 0.04 X10^3/uL; Basophil% 0.4 % (0-1); Calcium,Total 8.4 mg/dL (8.5-10.1); Chloride 107 mmol/L (98-107); Creatinine, Serum 1.06 mg/dL (0.70-1.30); EST Glomerular Filtration Rate 71 mL/min (>60); Eosinophil# 0.03 X10^3/uL; Eosinophils% 0.3 % (0-5); Est Glom Filt Rate - Afr Amer 86 mL/min (>60); Estimated Creatinine Clearance 54.66 ml/min; Globulin 3.3 g/dL (2.2-4.2); Glucose 107 mg/dL (74-106); Hematocrit 40.3 % (40-54); Hemoglobin 13.2 g/dl (13.0-16.5); Lymphocyte # 0.94 X10^3/ul (4.0); Lymphocyte % 9.2 % (19-41); Mean Corp Hgb Conc 32.8 g/gl (32-36); Mean Corpuscular Hgb 31.3 pg (27.0-32.0); Mean Corpuscular Volume 95.5 fL (80-94); Mean Platelet Vol. 10.3 fl (6.2-12.0); Monocyte# 0.96 X10^3/uL; Monocyte% 9.4 % (0-10); Neutrophil # 8.27 X10^3/uL (2.7-7.7); Neutrophil % 80.6 % (47-70); Platelet Count 190 K/mm3 (150-450); Potassium 4.1 mmol/L (3.5-5.1); Protein, Total 7.1 g/dL (6.4-8.2); RBC Distribution Width CV 13.2 % (11.6-14.6); RBC Distribution Width SD 45.9 fl (35.1-43.9); Red Blood Count 4.22 M/mm3 (4.6-6.2); Sodium Level 140 mmol/L (136-145); White Blood Count 10.3 K/mm3 (4.4-11.0)
[2018-10-13 22:02] LABS: POSITIVE COUNT NO; POSITIVE DIFFERENTIAL NO; POSITIVE MORPHOLOGY NO
[2018-10-13 22:11] LABS: Bacteria 0 SEEN /hpf (None Seen); Mucous, Urine 0 SEEN /hpf (<or=2+); Red Blood Cells-Urine 0 SEEN /hpf (0-5); Squamous Epithelial Cells - UA 0 SEEN /hpf (0-5); White Blood Cells 0 SEEN /hpf (0-5)
[2018-10-13 22:15] LABS: Color, Urine Yellow (Yellow); Glucose, Dipstick Normal (Normal); Ketone-Dipstick 5 mg/dl (Negative); Leukocyte Esterase-Dipstick Negative /ul (Negative); Nitrite-Dipstick Negative (Negative); Occult Blood-Urine Negative /ul (Negative); Protein-Dipstick Negative (Negative); Urine Bilirubin Dipstick Negative (Negative); Urine Clarity Clear (Clear); Urine Urobilinogen Normal (Normal)
[2018-10-13 22:28] VITALS: BP 151/79; PULSE 78; RESP 22; TEMP 37.1; O2SAT 95
[2018-10-13 22:57] VITALS: BP 146/71; PULSE 72; RESP 21; O2SAT 97
--- NOTE | 2018-10-13 22:59 | NURSING ---
report called to [facility] at [facility]. daughter transport pt there via van
== END 2018-10-13 23:00 | disposition skilled nursing facility (03) ==
PROVIDERS: Emergency Provider Emergency Medicine; Family Provider Family Medicine; PCP Family Medicine
DX: J06.9 Acute upper respiratory infection, unspecified (principal); R06.82 Tachypnea, not elsewhere classified; I48.91 Unspecified atrial fibrillation; I10 Essential (primary) hypertension; G20 Parkinson's disease; J45.909 Unspecified asthma, uncomplicated; F02.80 Dementia in other diseases classified elsewhere, unspecified severity, without behavioral disturbance, psychotic disturbance, mood disturbance, and anxiety; F32.9 Major depressive disorder, single episode, unspecified; K21.9 Gastro-esophageal reflux disease without esophagitis; Z85.46 Personal history of malignant neoplasm of prostate; Z86.73 Personal history of transient ischemic attack (TIA), and cerebral infarction without residual deficits; Z79.01 Long term (current) use of anticoagulants; Z79.82 Long term (current) use of aspirin; Z79.899 Other long term (current) drug therapy
CPT/HCPCS: 71046; 80053; 81001; 85025; 93005; 96360; 99285; J7040; A4216

== ENCOUNTER 2018-10-15 22:39 | Emergency (ER) | payer MEDICARE, BC, SELFPAY ==
[2018-10-15 22:40] VITALS: BP 92/59; PULSE 62; RESP 26; TEMP 36.4; O2SAT 94; BMI 21.4
--- NOTE | 2018-10-15 23:13 | CT_ITS ---
STUDY: CT BRAIN WITHOUT CONTRAST REASON FOR EXAM: Male, 83 years old. Trauma RADIATION DOSAGE (If Supplied By Facility): CTDIvol = ( 44.99 ) mGy, DLP = ( 863.60 ) mGycm TECHNIQUE: Transaxial CT imaging of the brain was performed without administration of intravenous contrast material. Individualized dose optimization techniques were used for this CT. COMPARISON: No relevant priors. FINDINGS: Normal soft tissue structures. Normal calvarium. There is mild cerebral atrophy with widening of the extra-axial spaces and ventricular dilatation. There are areas of decreased attenuation within the white matter tracts of the supratentorial brain, consistent with microvascular disease changes. There are small punctate calcifications of the basal ganglia which are seen in the aging brain as a normal variant. Normal brainstem. Normal cerebellum. There is no intracranial hemorrhage. There are no findings of an acute ischemic infarction. Paranasal sinus disease. Carotid and vertebral artery calcifications. CT/Brain/Head without Contrast IMPRESSION: Chronic involutional and white matter changes. No acute territorial infarct or intracranial hemorrhage. If patient's symptomology persists or there is continuing clinical concern MRI or follow-up CT scan can be performed. Electronically Signed: Edwin Salazar, at 0:28 EDT Tel , Service support ,
--- NOTE | 2018-10-15 23:13 | EKG12_ITS ---
Test Reason : FALL Blood Pressure : / mmHG Vent. Rate : 060 BPM Atrial Rate : 060 BPM P-R Int : 128 ms QRS Dur : 078 ms QT Int : 466 ms P-R-T Axes : 031 013 043 degrees QTc Int : 466 ms Sinus rhythm with Premature atrial complexes in a pattern of bigeminy Otherwise normal ECG Confirmed by SALIMA SANABRIA, EMERSON ([id number]), material expeditor FELICIA KNOX ([id number]) on 10/18/2018 1:12:37 PM Referred By: SATISH Confirmed By:EMERSON BORREGO MD
--- NOTE | 2018-10-15 23:13 | CT_ITS ---
STUDY: CT CERVICAL SPINE WITHOUT CONTRAST REASON FOR EXAM: Male, 83 years old. Trauma RADIATION DOSAGE (If Supplied By Facility): CTDIvol = ( 22.10 ) mGy, DLP = ( 498.19 ) mGycm TECHNIQUE: High resolution transaxial imaging was performed without contrast material. Sagittal and coronal images were reconstructed. Individualized dose optimization techniques were used for this CT. COMPARISON: None FINDINGS: The cervical lordosis is maintained. There is multilevel degenerative changes of the cervical spine. No acute fracture or subluxation. Facet arthropathy is present. Old C7 spinous process fracture. Scoliotic curvature to the spine. Severe degenerative changes of the articulation C1 and C2 on the right. Emphysematous changes. Scarring within the upper lobes. Calcified granuloma left upper lobe. Atherosclerotic disease. CT/Spine Cervical without Contras IMPRESSION: Multilevel degenerative changes of the cervical spine. No acute fracture or subluxation. Electronically Signed: Edwin Salazar, at 0:54 EDT Tel , Service support ,
[2018-10-15 23:15] VITALS: O2SAT 95
[2018-10-15] MEDS: 0.9% Normal Saline 1,000 ML 999 ML IV (23:21)
[2018-10-15 23:27] LABS: Absolute Lymphocyte Count 1.08 X10^3/ul (0.83-4.51); Absolute Neutrophil Count 5.4 X10^3/uL (2.0-7.7); Basophil# 0.02 X10^3/uL; Basophil% 0.3 % (0-1); Eosinophil# 0.09 X10^3/uL; Eosinophils% 1.2 % (0-5); Hematocrit 35.5 % (40-54); Hemoglobin 11.5 g/dl (13.0-16.5); Lymphocyte # 1.08 X10^3/ul (4.0); Mean Corp Hgb Conc 32.4 g/gl (32-36); Mean Corpuscular Hgb 30.9 pg (27.0-32.0); Mean Corpuscular Volume 95.4 fL (80-94); Mean Platelet Vol. 10.5 fl (6.2-12.0); Monocyte# 1.19 X10^3/uL; Monocyte% 15.4 % (0-10); Neutrophil # 5.35 X10^3/uL (2.7-7.7); Platelet Count 173 K/mm3 (150-450); RBC Distribution Width CV 13.2 % (11.6-14.6); Red Blood Count 3.72 M/mm3 (4.6-6.2); White Blood Count 7.7 K/mm3 (4.4-11.0)
[2018-10-15 23:28] LABS: POSITIVE COUNT NO; POSITIVE DIFFERENTIAL NO; POSITIVE MORPHOLOGY NO
[2018-10-15 23:34] LABS: International Normalized Ratio 1.6; Prothrombin Time (Protime)PT. 18.9 SECONDS (11.7-14.9)
[2018-10-15 23:37] LABS: ALB/GLOB Ratio 0.9 RATIO (0.9-2.4); AST(SGOT) 16 U/L (15-37); Alanine Aminotransfer ALT/SGPT 10 U/L (16-61); Albumin, Serum 3.1 g/dL (3.2-5.0); Alkaline Phosphatase 55 U/L (45-117); Anion Gap 5 (5-15); BUN 19 mg/dL (7-18); BUN/Creat Ratio 16.4 RATIO (10-20); Calcium,Total 8.1 mg/dL (8.5-10.1); Chloride 106 mmol/L (98-107); Creatinine, Serum 1.16 mg/dL (0.70-1.30); EST Glomerular Filtration Rate 64 mL/min (>60); Est Glom Filt Rate - Afr Amer 78 mL/min (>60); Globulin 3.3 g/dL (2.2-4.2); Glucose 128 mg/dL (74-106); Protein, Total 6.4 g/dL (6.4-8.2); Sodium Level 138 mmol/L (136-145)
[2018-10-15 23:38] LABS: Lactic Acid 1.2 mmol/L (0.4-2.0)
[2018-10-16 00:06] VITALS: BP 129/64; PULSE 64; RESP 16; O2SAT 94
[2018-10-16 00:52] LABS: Bacteria 0 SEEN /hpf (None Seen); Mucous, Urine 0 SEEN /hpf (<or=2+); White Blood Cells 0 SEEN /hpf (0-5)
--- NOTE | 2018-10-16 00:55 | ED.RN ---
cc called back requesting update on patient at this time
[2018-10-16 00:57] LABS: Color, Urine Straw (Yellow); Glucose, Dipstick Normal (Normal); Ketone-Dipstick Negative (Negative); Leukocyte Esterase-Dipstick Negative /ul (Negative); Nitrite-Dipstick Negative (Negative); Occult Blood-Urine 10 /ul (Negative); Protein-Dipstick Negative (Negative); Urine Bilirubin Dipstick Negative (Negative); Urine Clarity Clear (Clear); Urine Urobilinogen Normal (Normal); Urine pH 6.5 (5.0 - 8.0)
[2018-10-16 01:06] LABS: Red Blood Cells-Urine 0-5 SEEN /hpf (0-5)
[2018-10-16 01:07] LABS: Squamous Epithelial Cells - UA 0-5 SEEN /hpf (0-5)
[2018-10-16 01:17] VITALS: BP 120/70; PULSE 61; RESP 20; O2SAT 94
--- NOTE | 2018-10-16 01:39 | ED.VISSUMM ---
- ER Visit Summary Date of Service: 10/16/18 Chief Complaint: Fall History of Present Illness: The patient is a 83 M who presents after a fall. This was witnessed fall. There was a head injury. He has been sick for a couple of days with a URI-like illness congestion rhinorrhea cough. He has had fever up to 102. He has had 2- chest x-rays. He had a negative rapid influenza. He has been eating and drinking well. He is somnolent/lethargic for EMS and here however he gets multiple sedating medications at night including melatonin, Remeron, Seroquel, Restoril. Daughter states this is how he normally is at this time of day due to his medications. Physical Examination: Initial blood pressure 92/59 vitals otherwise unremarkable No evidence of trauma such as lacerations contusions abrasions hematomas Neck is nontender Moist mucous membranes Heart regular rate and rhythm Tachypnea without rales rhonchi wheezes Abdomen soft He has no pain with passive range of motion x4 extremities He is lethargic but does open his eyes and respond to voice he does not have focal or lateralizing neurological deficits Test Results: EKG shows sinus rhythm at a rate of 60 with PACs. Laboratory studies unremarkable with a negative lactic acid. Urinalysis normal. I did not repeat chest x-ray as he has had 2 recent chest x-rays including a portable x-ray at the nursing facility earlier today which was reportedly normal. CT of the head shows chronic changes only. CT of the cervical spine shows no fracture there are multilevel degenerative changes. Emergency Department Course and Treatment: Patient was given IV fluids here. He has normal lactic acid no leukocytosis no tachycardia. I believe his altered mental status is related to dementia, Parkinson's, multiple sedating medications. Family states that this is his baseline after receiving his medications. He has no evidence of significant traumatic injury. I believe he can be discharged back to the nursing facility. Treatment Plan: [] Disposition: Discharge Impression: Fall This note was generated with [employer] dictation software. It may contain incorrect words, spelling, and punctuation that were not noted in review of the chart prior to signing ED Disposition - Plan for ED Patient: Referrals: David Monrdagon III, MD [Primary Care Provider] -
--- NOTE | 2018-10-16 01:41 | ED.DEP ---
ED Disposition - Plan for ED Patient: Instructions: ED Fall Uncertain Cause Referrals: David Mondragon III, MD [Primary Care Provider] -
--- NOTE | 2018-10-16 01:42 | ED.DCSUM_ITS ---
- ER Visit Summary Date of Service: 10/16/18 Chief Complaint: Fall History of Present Illness: The patient is a 83 M who presents after a fall. This was witnessed fall. There was a head injury. He has been sick for a couple of days with a URI-like illness congestion rhinorrhea cough. He has had fever up to 102. He has had 2- chest x-rays. He had a negative rapid influenza. He has been eating and drinking well. He is somnolent/lethargic for EMS and here however he gets multiple sedating medications at night including melatonin, Remeron, Seroquel, Restoril. Daughter states this is how he normally is at this time of day due to his medications. Physical Examination: Initial blood pressure 92/59 vitals otherwise unremarkable No evidence of trauma such as lacerations contusions abrasions hematomas Neck is nontender Moist mucous membranes Heart regular rate and rhythm Tachypnea without rales rhonchi wheezes Abdomen soft He has no pain with passive range of motion x4 extremities He is lethargic but does open his eyes and respond to voice he does not have focal or lateralizing neurological deficits Test Results: EKG shows sinus rhythm at a rate of 60 with PACs. Laboratory studies unremarkable with a negative lactic acid. Urinalysis normal. I did not repeat chest x-ray as he has had 2 recent chest x-rays including a portable x- ray at the nursing facility earlier today which was reportedly normal. CT of the head shows chronic changes only. CT of the cervical spine shows no fracture there are multilevel degenerative changes. Emergency Department Course and Treatment: Patient was given IV fluids here. He has normal lactic acid no leukocytosis no tachycardia. I believe his altered mental status is related to dementia, Parkinson's, multiple sedating medications. Family states that this is his baseline after receiving his medications. He has no evidence of significant traumatic injury. I believe he can be discharged back to the nursing facility. Treatment Plan: [] Disposition: Discharge Impression: Fall This note was generated with [employer] dictation software. It may contain incorrect words, spelling, and punctuation that were not noted in review of the chart prior to signing ED Disposition - Plan for ED Patient: Referrals: David Mondragon III, MD [Primary Care Provider] -
--- NOTE | 2018-10-16 02:23 | ED.RN ---
report called to [facility]
== END 2018-10-16 02:24 | disposition skilled nursing facility (03) ==
LOC: ED 23:30
PROVIDERS: Emergency Provider Emergency Medicine; Family Provider Family Medicine; PCP Family Medicine
DX: S09.90XA Unspecified injury of head, initial encounter (principal); W19.XXXA Unspecified fall, initial encounter; Y93.9 Activity, unspecified; Y92.89 Other specified places as the place of occurrence of the external cause; Y99.9 Unspecified external cause status; R05 Cough; R50.9 Fever, unspecified; I25.10 Atherosclerotic heart disease of native coronary artery without angina pectoris; I10 Essential (primary) hypertension; E78.00 Pure hypercholesterolemia, unspecified; I48.91 Unspecified atrial fibrillation; Z95.5 Presence of coronary angioplasty implant and graft; G20 Parkinson's disease; F02.80 Dementia in other diseases classified elsewhere, unspecified severity, without behavioral disturbance, psychotic disturbance, mood disturbance, and anxiety
CPT/HCPCS: 70450; 72125; 80053; 81001; 83605; 85025; 85610; 87040; 87086; 93005; 96360; 99285; J7030; P9612; A4216

== ENCOUNTER → 2020-12-24 | Outpatient (REF) | payer MEDICARE, BC, SELFPAY ==
[2018-12-07 14:26] VITALS: BMI 20.9
[2020-12-24 08:31] LABS: Mean Corp Hgb Conc 31.7 g/dL (32-36); Mean Corpuscular Hgb 31.3 pg (27.0-32.0); Mean Corpuscular Volume 98.8 fL (80-94); Mean Platelet Vol. 10.5 fl (6.2-12.0); Platelet Count 176 K/mm3 (150-450); RBC Distribution Width CV 12.3 % (11.6-14.6); RBC Distribution Width SD 45.1 fl (35.1-43.9); Red Blood Count 4.15 M/mm3 (4.6-6.2); White Blood Count 5.7 K/mm3 (4.4-11.0)
[2020-12-24 08:42] LABS: Anion Gap 3 (5-15); BUN 20 mg/dL (7-18); BUN/Creat Ratio 20.8 RATIO (10-20); Calcium,Total 8.5 mg/dL (8.5-10.1); Chloride 109 mmol/L (98-107); Creatinine, Serum 0.96 mg/dL (0.70-1.30); EST Glomerular Filtration Rate 79 mL/min (>60); Est Glom Filt Rate - Afr Amer 96 mL/min (>60); Glucose 84 mg/dL (74-106); Potassium 4.1 mmol/L (3.5-5.1); Sodium Level 141 mmol/L (136-145)
== END | disposition home or self-care (01) ==
LOC: OLS.SW400 05:00
PROVIDERS: PCP Family Medicine; Visit Provider Internal Medicine
DX: G20 Parkinson's disease (principal); I10 Essential (primary) hypertension
CPT/HCPCS: 36415; 80048; 85027

== ENCOUNTER → 2021-02-22 09:15 | Outpatient (REF) | payer MEDICARE, BC, SELFPAY ==
[2018-12-07 14:26] VITALS: BMI 20.9
[2021-02-22 09:48] LABS: Bacteria 0 SEEN /hpf (None Seen); Mucous, Urine 0 SEEN /hpf (<or=2+); Red Blood Cells-Urine 0 SEEN /hpf (0-5); White Blood Cells 0 SEEN /hpf (0-5)
[2021-02-22 10:06] LABS: Hematocrit 42.8 % (40-54); Hemoglobin 13.4 g/dL (13.0-16.5); Mean Corp Hgb Conc 31.3 g/dL (32-36); Mean Corpuscular Volume 99.1 fL (80-94); Platelet Count 211 K/mm3 (150-450); RBC Distribution Width CV 12.6 % (11.6-14.6); RBC Distribution Width SD 45.9 fl (35.1-43.9); Red Blood Count 4.32 M/mm3 (4.6-6.2); White Blood Count 5.3 K/mm3 (4.4-11.0)
[2021-02-22 10:09] LABS: Color, Urine Yellow (Yellow); Glucose, Dipstick Normal (Normal); Ketone-Dipstick Negative (Negative); Leukocyte Esterase-Dipstick Negative /ul (Negative); Nitrite-Dipstick Negative (Negative); Occult Blood-Urine Negative /ul (Negative); Protein-Dipstick Negative (Negative); Specific Gravity, Urine 1.015 (1.002-1.030); Urine Bilirubin Dipstick Negative (Negative); Urine Clarity Clear (Clear); Urine Urobilinogen Normal (Normal); Urine pH 6.5 (5.0 - 8.0)
[2021-02-22 10:16] LABS: Anion Gap 5 (5-15); BUN 17 mg/dL (7-18); BUN/Creat Ratio 15.9 RATIO (10-20); Calcium,Total 8.8 mg/dL (8.5-10.1); Chloride 106 mmol/L (98-107); Creatinine, Serum 1.07 mg/dL (0.70-1.30); EST Glomerular Filtration Rate 70 mL/min (>60); Est Glom Filt Rate - Afr Amer 85 mL/min (>60); Glucose 93 mg/dL (74-106); Sodium Level 142 mmol/L (136-145)
[2021-02-22 10:18] LABS: Squamous Epithelial Cells - UA 0-5 SEEN /hpf (0-5)
== END ==
LOC: OLS.SW400 09:15
PROVIDERS: PCP Family Medicine; Visit Provider Internal Medicine
DX: R41.82 Altered mental status, unspecified (principal)
CPT/HCPCS: 36415; 80048; 81001; 85027; 87086; 87088

== ENCOUNTER → 2021-03-12 05:00 | Outpatient (REF) | payer MEDICARE, BC, MEDICAID, SELFPAY ==
[2021-03-12 07:53] LABS: Hematocrit 39.5 % (40-54); Hemoglobin 12.6 g/dL (13.0-16.5); Mean Corp Hgb Conc 31.9 g/dL (32-36); Mean Corpuscular Hgb 31.5 pg (27.0-32.0); Mean Corpuscular Volume 98.8 fL (80-94); Mean Platelet Vol. 10.4 fl (6.2-12.0); Platelet Count 192 K/mm3 (150-450); RBC Distribution Width CV 12.6 % (11.6-14.6); RBC Distribution Width SD 45.5 fl (35.1-43.9); White Blood Count 5.2 K/mm3 (4.4-11.0)
[2021-03-12 08:11] LABS: ALB/GLOB Ratio 1.1 RATIO (0.9-2.4); AST(SGOT) 18 U/L (15-37); Alanine Aminotransfer ALT/SGPT 18 U/L (16-61); Albumin, Serum 3.2 g/dL (3.2-5.0); Alkaline Phosphatase 49 U/L (45-117); Anion Gap 4 (5-15); BUN 18 mg/dL (7-18); BUN/Creat Ratio 18.8 RATIO (10-20); Calcium,Total 8.2 mg/dL (8.5-10.1); Chloride 109 mmol/L (98-107); Creatinine, Serum 0.96 mg/dL (0.70-1.30); EST Glomerular Filtration Rate 80 mL/min (>60); Est Glom Filt Rate - Afr Amer 96 mL/min (>60); Glucose 77 mg/dL (74-106); Magnesium 2.1 mg/dL (1.6-2.6); Potassium 4.2 mmol/L (3.5-5.1); Protein, Total 6.2 g/dL (6.4-8.2); Sodium Level 142 mmol/L (136-145)
== END ==
LOC: OLS.SW400 05:00
PROVIDERS: PCP Family Medicine; Visit Provider Family Medicine
DX: I10 Essential (primary) hypertension (principal)
CPT/HCPCS: 36415; 80053; 83735; 85027

== ENCOUNTER → 2021-05-13 06:55 | Outpatient (REF) | payer MEDICARE, BC, MEDICAID, SELFPAY ==
[2021-05-13 08:55] LABS: Hematocrit 38.7 % (40-54); Hemoglobin 12.6 g/dL (13.0-16.5); Mean Corp Hgb Conc 32.6 g/dL (32-36); Mean Corpuscular Hgb 31.5 pg (27.0-32.0); Mean Corpuscular Volume 96.8 fL (80-94); Platelet Count 194 K/mm3 (150-450); RBC Distribution Width CV 12.3 % (11.6-14.6); RBC Distribution Width SD 43.7 fl (35.1-43.9); White Blood Count 5.8 K/mm3 (4.4-11.0)
[2021-05-13 09:07] LABS: ALB/GLOB Ratio 0.9 RATIO (0.9-2.4); AST(SGOT) 18 U/L (15-37); Alanine Aminotransfer ALT/SGPT 18 U/L (16-61); Albumin, Serum 3.2 g/dL (3.2-5.0); Alkaline Phosphatase 49 U/L (45-117); Anion Gap 7 (5-15); BUN 25 mg/dL (7-18); BUN/Creat Ratio 23.1 RATIO (10-20); Calcium,Total 8.6 mg/dL (8.5-10.1); Chloride 105 mmol/L (98-107); Cholesterol 135 mg/dL (200); Creatinine, Serum 1.08 mg/dL (0.70-1.30); EST Glomerular Filtration Rate 69 mL/min (>60); Est Glom Filt Rate - Afr Amer 84 mL/min (>60); Globulin 3.4 g/dL (2.2-4.2); Glucose 94 mg/dL (74-106); High Density Lipoprotein 48 mg/dL; Magnesium 2.2 mg/dL (1.6-2.6); Potassium 4.1 mmol/L (3.5-5.1); Protein, Total 6.6 g/dL (6.4-8.2); Sodium Level 141 mmol/L (136-145); Triglycerides 156 mg/dL; Very Low Density Lipoprotein 31 mg/dL (5-40)
== END ==
LOC: OLS.SW400 06:55
PROVIDERS: PCP Family Medicine; Visit Provider Internal Medicine
DX: I10 Essential (primary) hypertension (principal)
CPT/HCPCS: 36415; 80053; 80061; 83735; 85027

== ENCOUNTER → 2021-06-10 07:20 | Outpatient (REF) | payer MEDICARE, BC, MEDICAID, SELFPAY ==
[2021-06-10 10:06] LABS: Hemoglobin A1c 5.4 % (3.8-5.6)
== END ==
LOC: OLS.SW400 07:20
PROVIDERS: PCP Family Medicine; Visit Provider Family Medicine
DX: I10 Essential (primary) hypertension (principal); Z79.899 Other long term (current) drug therapy
CPT/HCPCS: 36415; 83036

== ENCOUNTER → 2021-06-11 | Outpatient (REF) | payer MEDICARE, BC, MEDICAID, SELFPAY ==
[2021-06-11 08:23] LABS: Hematocrit 39.2 % (40-54); Hemoglobin 12.5 g/dL (13.0-16.5); Mean Corp Hgb Conc 31.9 g/dL (32-36); Mean Corpuscular Hgb 30.9 pg (27.0-32.0); Mean Platelet Vol. 10.2 fl (6.2-12.0); Platelet Count 205 K/mm3 (150-450); RBC Distribution Width CV 12.2 % (11.6-14.6); RBC Distribution Width SD 44.1 fl (35.1-43.9); Red Blood Count 4.04 M/mm3 (4.6-6.2); White Blood Count 5.5 K/mm3 (4.4-11.0)
[2021-06-11 08:46] LABS: ALB/GLOB Ratio 0.9 RATIO (0.9-2.4); AST(SGOT) 17 U/L (15-37); Alanine Aminotransfer ALT/SGPT 15 U/L (16-61); Alkaline Phosphatase 54 U/L (45-117); Anion Gap 7 (5-15); BUN 21 mg/dL (7-18); BUN/Creat Ratio 22.6 RATIO (10-20); Calcium,Total 8.7 mg/dL (8.5-10.1); Chloride 106 mmol/L (98-107); Creatinine, Serum 0.93 mg/dL (0.70-1.30); EST Glomerular Filtration Rate 82 mL/min (>60); Est Glom Filt Rate - Afr Amer 100 mL/min (>60); Globulin 3.4 g/dL (2.2-4.2); Glucose 80 mg/dL (74-106); Magnesium 2.4 mg/dL (1.6-2.6); Potassium 4.4 mmol/L (3.5-5.1); Protein, Total 6.4 g/dL (6.4-8.2); Sodium Level 140 mmol/L (136-145)
== END | disposition home or self-care (01) ==
LOC: OLS.SW400 05:00
PROVIDERS: PCP Family Medicine; Visit Provider Family Medicine
DX: F03.90 Unspecified dementia, unspecified severity, without behavioral disturbance, psychotic disturbance, mood disturbance, and anxiety (principal); I10 Essential (primary) hypertension
CPT/HCPCS: 36415; 80053; 83735; 85027

== ENCOUNTER → 2021-07-01 04:00 | Outpatient (REF) | payer MEDICARE, BC, MEDICAID, SELFPAY ==
[2021-07-01 07:33] LABS: Absolute Lymphocyte Count 1.59 X10^3/uL (0.83-4.51); Absolute Neutrophil Count 3.7 X10^3/uL (2.0-7.7); Basophil# 0.06 X10^3/uL; Eosinophils% 3.2 % (0-5); Hematocrit 37.7 % (40-54); Hemoglobin 12.2 g/dL (13.0-16.5); Lymphocyte # 1.59 X10^3/ul (0.83-4.51); Lymphocyte % 25.6 % (19-41); Mean Corp Hgb Conc 32.4 g/dL (32-36); Mean Corpuscular Hgb 31.8 pg (27.0-32.0); Mean Corpuscular Volume 98.2 fL (80-94); Mean Platelet Vol. 10.3 fl (6.2-12.0); Monocyte# 0.68 X10^3/uL; Monocyte% 10.9 % (0-10); NRBC Flagged by Analyzer 0 % (0-5); Neutrophil # 3.68 X10^3/uL (2.7-7.7); Neutrophil % 59.1 % (47-70); Platelet Count 188 K/mm3 (150-450); RBC Distribution Width CV 12.5 % (11.6-14.6); RBC Distribution Width SD 45.2 fl (35.1-43.9); Red Blood Count 3.84 M/mm3 (4.6-6.2); White Blood Count 6.2 K/mm3 (4.4-11.0)
[2021-07-01 07:48] LABS: Anion Gap 5 (5-15); BUN 25 mg/dL (7-18); Calcium,Total 8.4 mg/dL (8.5-10.1); Chloride 109 mmol/L (98-107); Cholesterol 125 mg/dL (200); Creatinine, Serum 1.04 mg/dL (0.70-1.30); EST Glomerular Filtration Rate 72 mL/min (>60); Est Glom Filt Rate - Afr Amer 88 mL/min (>60); Glucose 83 mg/dL (74-106); High Density Lipoprotein 50 mg/dL; Potassium 4.3 mmol/L (3.5-5.1); Sodium Level 142 mmol/L (136-145); Triglycerides 100 mg/dL; Very Low Density Lipoprotein 20 mg/dL (5-40)
[2021-07-01 07:56] LABS: Hemoglobin A1c 5.4 % (3.8-5.6)
== END ==
LOC: OLS.SW400 04:00
PROVIDERS: Visit Provider Family Medicine
DX: F03.90 Unspecified dementia, unspecified severity, without behavioral disturbance, psychotic disturbance, mood disturbance, and anxiety (principal); E11.9 Type 2 diabetes mellitus without complications; I10 Essential (primary) hypertension
CPT/HCPCS: 36415; 80048; 80061; 83036; 85025

== ENCOUNTER → 2021-08-08 | Outpatient (REF) | payer MEDICARE, BC, MEDICAID, SELFPAY ==
[2021-08-08 11:24] LABS: Bacteria 0 SEEN /hpf (None Seen); Mucous, Urine 0 SEEN /hpf (<or=2+); Red Blood Cells-Urine 0 SEEN /hpf (0-5); Squamous Epithelial Cells - UA 0 SEEN /hpf (0-5); White Blood Cells 0 SEEN /hpf (0-5)
[2021-08-08 11:59] LABS: Color, Urine Yellow (Yellow); Glucose, Dipstick Normal (Normal); Ketone-Dipstick Negative (Negative); Leukocyte Esterase-Dipstick Negative /ul (Negative); Nitrite-Dipstick Negative (Negative); Occult Blood-Urine Negative /ul (Negative); Protein-Dipstick Negative (Negative); Specific Gravity, Urine 1.015 (1.002-1.030); Urine Bilirubin Dipstick Negative (Negative); Urine Clarity Clear (Clear); Urine Urobilinogen Normal (Normal)
== END | disposition home or self-care (01) ==
LOC: OLS.SW400 05:25
PROVIDERS: Visit Provider Internal Medicine
DX: N39.0 Urinary tract infection, site not specified (principal); R35.0 Frequency of micturition; R39.15 Urgency of urination
CPT/HCPCS: 81001; 87077; 87086; 87088; 87186

== ENCOUNTER 2021-08-26 05:00 | Outpatient (REF) | payer MEDICARE, BC, MEDICAID, SELFPAY ==
[2021-08-26 08:53] LABS: Anion Gap 3 (5-15); BUN 23 mg/dL (7-18); BUN/Creat Ratio 20.5 RATIO (10-20); Calcium,Total 8.8 mg/dL (8.5-10.1); Chloride 106 mmol/L (98-107); Creatinine, Serum 1.12 mg/dL (0.70-1.30); EST Glomerular Filtration Rate 66 mL/min (>60); Est Glom Filt Rate - Afr Amer 80 mL/min (>60); Glucose 86 mg/dL (74-106); Potassium 4.2 mmol/L (3.5-5.1); Sodium Level 141 mmol/L (136-145)
== END 2021-08-26 23:59 | disposition home or self-care (01) ==
LOC: OLS.SW400 05:00
PROVIDERS: Visit Provider Internal Medicine
DX: F03.90 Unspecified dementia, unspecified severity, without behavioral disturbance, psychotic disturbance, mood disturbance, and anxiety (principal); I10 Essential (primary) hypertension
CPT/HCPCS: 36415; 80048

== ENCOUNTER → 2021-09-09 | Outpatient (REF) | payer MEDICARE, BC, MEDICAID, SELFPAY ==
[2021-09-09 08:36] LABS: BNP,B-Type NATRIURETIC PEPTIDE 96.6 pg/mL (0-100)
== END | disposition home or self-care (01) ==
LOC: OLS.SW400 05:00
PROVIDERS: Visit Provider Internal Medicine
DX: I10 Essential (primary) hypertension (principal); F03.90 Unspecified dementia, unspecified severity, without behavioral disturbance, psychotic disturbance, mood disturbance, and anxiety; R63.5 Abnormal weight gain
CPT/HCPCS: 36415; 83880

== ENCOUNTER → 2021-09-10 | Outpatient (REF) | payer MEDICARE, BC, MEDICAID, SELFPAY ==
[2021-09-10 06:33] LABS: Hematocrit 37.5 % (40-54); Hemoglobin 12.3 g/dL (13.0-16.5); Mean Corp Hgb Conc 32.8 g/dL (32-36); Mean Corpuscular Hgb 31.7 pg (27.0-32.0); Mean Corpuscular Volume 96.6 fL (80-94); Mean Platelet Vol. 10.4 fl (6.2-12.0); Platelet Count 172 K/mm3 (150-450); RBC Distribution Width CV 12.4 % (11.6-14.6); RBC Distribution Width SD 43.8 fl (35.1-43.9); Red Blood Count 3.88 M/mm3 (4.6-6.2); White Blood Count 5.2 K/mm3 (4.4-11.0)
[2021-09-10 06:53] LABS: ALB/GLOB Ratio 0.9 RATIO (0.9-2.4); AST(SGOT) 15 U/L (15-37); Alanine Aminotransfer ALT/SGPT 15 U/L (16-61); Alkaline Phosphatase 54 U/L (45-117); Anion Gap 4 (5-15); BUN 21 mg/dL (7-18); BUN/Creat Ratio 18.6 RATIO (10-20); Calcium,Total 8.7 mg/dL (8.5-10.1); Chloride 109 mmol/L (98-107); Creatinine, Serum 1.13 mg/dL (0.70-1.30); EST Glomerular Filtration Rate 66 mL/min (>60); Est Glom Filt Rate - Afr Amer 80 mL/min (>60); Globulin 3.2 g/dL (2.2-4.2); Glucose 87 mg/dL (74-106); Magnesium 2.1 mg/dL (1.6-2.6); Potassium 4.4 mmol/L (3.5-5.1); Protein, Total 6.2 g/dL (6.4-8.2); Sodium Level 140 mmol/L (136-145)
== END | disposition home or self-care (01) ==
LOC: OLS.SW400 05:00
PROVIDERS: Referring Provider Family Medicine; Visit Provider Family Medicine
DX: R53.83 Other fatigue (principal)
CPT/HCPCS: 36415; 80053; 83735; 85027

== ENCOUNTER → 2021-10-07 | Outpatient (REF) | payer MEDICARE, BC, MEDICAID, SELFPAY ==
[2021-10-07 12:34] LABS: Absolute Lymphocyte Count 0.15 X10^3/uL (0.83-4.51); Absolute Neutrophil Count 6.1 X10^3/uL (2.0-7.7); Basophil# 0.02 X10^3/uL; Basophil% 0.3 % (0-1); Hematocrit 42.4 % (40-54); Hemoglobin 13.9 g/dL (13.0-16.5); Lymphocyte # 0.15 X10^3/ul (0.83-4.51); Lymphocyte % 2.3 % (19-41); Mean Corp Hgb Conc 32.8 g/dL (32-36); Mean Corpuscular Hgb 32.2 pg (27.0-32.0); Mean Corpuscular Volume 98.1 fL (80-94); Mean Platelet Vol. 10.1 fl (6.2-12.0); Monocyte# 0.34 X10^3/uL; Monocyte% 5.1 % (0-10); NRBC Flagged by Analyzer 0 % (0-5); Neutrophil # 6.09 X10^3/uL (2.7-7.7); POSITIVE DIFFERENTIAL YES; Platelet Count 198 K/mm3 (150-450); RBC Distribution Width CV 12.7 % (11.6-14.6); RBC Distribution Width SD 45.4 fl (35.1-43.9); Red Blood Count 4.32 M/mm3 (4.6-6.2); White Blood Count 6.6 K/mm3 (4.4-11.0)
[2021-10-07 12:36] LABS: Differential Indicated SCAN CRITERIA MET
[2021-10-07 12:55] LABS: Anion Gap 1 (5-15); BUN 36 mg/dL (7-18); BUN/Creat Ratio 22.5 RATIO (10-20); Chloride 109 mmol/L (98-107); EST Glomerular Filtration Rate 44 mL/min (>60); Est Glom Filt Rate - Afr Amer 53 mL/min (>60); Glucose 126 mg/dL (74-106); Potassium 4.6 mmol/L (3.5-5.1); Sodium Level 140 mmol/L (136-145)
[2021-10-08 08:25] LABS: Bacteria 0 SEEN /hpf (None Seen); Mucous, Urine 0 SEEN /hpf (<or=2+); Red Blood Cells-Urine 0 SEEN /hpf (0-5); Squamous Epithelial Cells - UA 0 SEEN /hpf (0-5); White Blood Cells 0 SEEN /hpf (0-5)
[2021-10-08 08:46] LABS: Color, Urine Yellow (Yellow); Glucose, Dipstick Normal (Normal); Ketone-Dipstick 15 mg/dl (Negative); Leukocyte Esterase-Dipstick 25 /ul (Negative); Nitrite-Dipstick Negative (Negative); Occult Blood-Urine 10 /ul (Negative); Protein-Dipstick 15 mg/dl (Negative); Specific Gravity, Urine 1.025 (1.002-1.030); Urine Clarity Clear (Clear); Urine Urobilinogen 1 mg/dl (Normal)
[2021-10-08 08:48] LABS: Urine Bilirubin Dipstick 3 mg/dL (Negative)
== END | disposition home or self-care (01) ==
LOC: OLS.SW400 12:10
PROVIDERS: Visit Provider Internal Medicine
DX: R53.83 Other fatigue (principal); N39.0 Urinary tract infection, site not specified
CPT/HCPCS: 36415; 80048; 81001; 85025; 87086; 87088

== ENCOUNTER → 2021-10-14 | Outpatient (REF) | payer MEDICARE, BC, MEDICAID, SELFPAY ==
[2021-10-15 07:43] LABS: Red Blood Cells-Urine 0 SEEN /hpf (0-5); White Blood Cells 0 SEEN /hpf (0-5)
[2021-10-15 08:00] LABS: Color, Urine Yellow (Yellow); Glucose, Dipstick Normal (Normal); Ketone-Dipstick 5 mg/dl (Negative); Leukocyte Esterase-Dipstick 25 /ul (Negative); Nitrite-Dipstick Negative (Negative); Occult Blood-Urine Negative /ul (Negative); Protein-Dipstick 15 mg/dl (Negative); Urine Bilirubin Dipstick Negative (Negative); Urine Clarity Cloudy (Clear); Urine Urobilinogen Normal (Normal); Urine pH 6.5 (5.0 - 8.0)
[2021-10-15 08:09] LABS: Bacteria 2+ /hpf (None Seen); Calcium Oxalate Crystals Ur RARE /hpf (<or=2+); Mucous, Urine RARE /hpf (<or=2+); Squamous Epithelial Cells - UA 0-5 SEEN /hpf (0-5)
== END | disposition home or self-care (01) ==
LOC: OLS.SW400 07:43
PROVIDERS: Visit Provider Internal Medicine
DX: N39.0 Urinary tract infection, site not specified (principal)
CPT/HCPCS: 81001; 87086; 87088

== ENCOUNTER → 2021-11-05 | Outpatient (REF) | payer MEDICARE, BC, MEDICAID, SELFPAY ==
[2021-11-05 08:59] LABS: Anion Gap 6 (5-15); BUN 25 mg/dL (7-18); Chloride 105 mmol/L (98-107); Creatinine, Serum 1.04 mg/dL (0.70-1.30); EST Glomerular Filtration Rate 72 mL/min (>60); Est Glom Filt Rate - Afr Amer 88 mL/min (>60); Glucose 89 mg/dL (74-106); Potassium 4.5 mmol/L (3.5-5.1); Sodium Level 141 mmol/L (136-145)
== END | disposition home or self-care (01) ==
LOC: OLS.SW400 05:00
PROVIDERS: Visit Provider Internal Medicine
DX: R53.83 Other fatigue (principal)
CPT/HCPCS: 36415; 80048

== ENCOUNTER → 2021-11-14 | Outpatient (REF) | payer MEDICARE, BC, MEDICAID, SELFPAY ==
[2021-11-14 06:42] LABS: Absolute Lymphocyte Count 1.14 X10^3/uL (0.83-4.51); Absolute Neutrophil Count 4.5 X10^3/uL (2.0-7.7); Basophil# 0.04 X10^3/uL; Basophil% 0.6 % (0-1); Eosinophil# 0.12 X10^3/uL; Eosinophils% 1.8 % (0-5); Hematocrit 34.1 % (40-54); Hemoglobin 11.2 g/dL (13.0-16.5); Lymphocyte # 1.14 X10^3/ul (0.83-4.51); Lymphocyte % 17.2 % (19-41); Mean Corp Hgb Conc 32.8 g/dL (32-36); Mean Corpuscular Hgb 31.6 pg (27.0-32.0); Mean Corpuscular Volume 96.3 fL (80-94); Mean Platelet Vol. 9.6 fl (6.2-12.0); Monocyte# 0.84 X10^3/uL; Monocyte% 12.7 % (0-10); NRBC Flagged by Analyzer 0 % (0-5); Neutrophil # 4.47 X10^3/uL (2.7-7.7); Neutrophil % 67.2 % (47-70); Platelet Count 321 K/mm3 (150-450); RBC Distribution Width CV 13.5 % (11.6-14.6); RBC Distribution Width SD 47.7 fl (35.1-43.9); Red Blood Count 3.54 M/mm3 (4.6-6.2); White Blood Count 6.6 K/mm3 (4.4-11.0)
[2021-11-14 06:58] LABS: Anion Gap 4 (5-15); BUN 15 mg/dL (7-18); BUN/Creat Ratio 18.9 RATIO (10-20); Calcium,Total 8.8 mg/dL (8.5-10.1); Chloride 105 mmol/L (98-107); Creatinine, Serum 0.79 mg/dL (0.70-1.30); EST Glomerular Filtration Rate 99 mL/min (>60); Est Glom Filt Rate - Afr Amer 119 mL/min (>60); Glucose 82 mg/dL (74-106); Potassium 4.3 mmol/L (3.5-5.1); Sodium Level 137 mmol/L (136-145)
== END | disposition home or self-care (01) ==
LOC: OLS.SW400 05:00
PROVIDERS: Visit Provider Internal Medicine
DX: R45.1 Restlessness and agitation (principal)
CPT/HCPCS: 36415; 80048; 85025

== ENCOUNTER → 2021-12-10 | Outpatient (REF) | payer SELFPAY ==
[2021-12-10 07:14] LABS: Hemoglobin 12.9 g/dL (13.0-16.5); Mean Corp Hgb Conc 31.5 g/dL (32-36); Mean Corpuscular Hgb 31.2 pg (27.0-32.0); Mean Platelet Vol. 10.3 fl (6.2-12.0); Platelet Count 296 K/mm3 (150-450); RBC Distribution Width CV 13.8 % (11.6-14.6); RBC Distribution Width SD 50.6 fl (35.1-43.9); Red Blood Count 4.14 M/mm3 (4.6-6.2); White Blood Count 7.9 K/mm3 (4.4-11.0)
[2021-12-10 07:30] LABS: ALB/GLOB Ratio 0.8 RATIO (0.9-2.4); AST(SGOT) 16 U/L (15-37); Alanine Aminotransfer ALT/SGPT 12 U/L (16-61); Albumin, Serum 3.2 g/dL (3.2-5.0); Alkaline Phosphatase 63 U/L (45-117); Anion Gap 5 (5-15); BUN 23 mg/dL (7-18); BUN/Creat Ratio 25.1 RATIO (10-20); Calcium,Total 9.5 mg/dL (8.5-10.1); Chloride 109 mmol/L (98-107); Creatinine, Serum 0.92 mg/dL (0.70-1.30); EST Glomerular Filtration Rate 84 mL/min (>60); Est Glom Filt Rate - Afr Amer 101 mL/min (>60); Globulin 3.9 g/dL (2.2-4.2); Glucose 97 mg/dL (74-106); Magnesium 1.8 mg/dL (1.6-2.6); Potassium 3.8 mmol/L (3.5-5.1); Protein, Total 7.1 g/dL (6.4-8.2); Sodium Level 144 mmol/L (136-145)
== END | disposition home or self-care (01) ==
LOC: OLS.SW400 05:55
PROVIDERS: Visit Provider Internal Medicine
DX: I10 Essential (primary) hypertension (principal)
CPT/HCPCS: 36415; 80053; 83735; 85027